=== PATIENT | male | born 1990 | race Caucasian/White ===

== ENCOUNTER 2023-03-05 08:26 | Outpatient (CLI) | payer BC, SELFPAY | END 2023-03-05 08:27 | disposition home or self-care (01) | PROVIDERS: PCP Family Medicine; Visit Provider Family Medicine | DX: Z00.00 Encounter for general adult medical examination without abnormal findings (principal); R53.83 Other fatigue; Z13.6 Encounter for screening for cardiovascular disorders | CPT/HCPCS: 80048; 80061; 84403; 84460 ==

== ENCOUNTER 2024-12-25 18:08 | Emergency (ER) | payer BC, SELFPAY ==
--- OUTSIDE RECORDS SUMMARY | 2024-12-25 16:04 | XMS_ITS | Continuity of Care Document ---
Author Name [facility] Organization [facility] Care Team Providers Care Four H Agent Name Role Phone [facility] Unavailable Unavailable Problems Combined list of problems from Department of Defense and Veterans Affairs facilities. It does not include entries that were removed or entered in error. Problem Status Onset Date Problem Type Date of Resolution Comments Source Alcohol dependence Active Condition [facility] 2021 Entered By: JOSE REYES Comment: Rha [facility] Chronic low back pain Active Condition [facility] Pain in right leg Active Condition [facility] Right hip pain Active Condition [facility] NO PSYCHIATRIC DIAGNOSIS OR CONDITION ON AXIS I Inactive Condition [facility] Rehabilitation Active Condition DoD tobacco use Active Condition DoD THIGH STRAIN Inactive Condition [facility] INJURY OF LOWER EXTREMITY HIP Inactive Condition [facility] visit for: potential organ / tissue donor Inactive Condition DoD Need For Prophylactic Antibiotics Inactive Condition [facility] Orthopedic Aftercare For Healing Fracture Inactive Condition DoD UPPER RESPIRATORY INFECTION Inactive Condition Do[facility] STRESS FRACTURE OF NECK OF FEMUR Active Condition DoD Need For Vaccination Yellow Fever Inactive Condition DoD UNSPECIFIED MUSCLE STRAIN Inactive Condition DoD THIGH STRAIN RIGHT Inactive Condition [facility] joint pain, localized in the hip Active Condition DoD Need For Vaccination Chickenpox (Active) Inactive Condition [facility] Need For Vaccination Poliomyelitis Inactivated Inactive Condition DoD Vaccines Prophylactic Need Against Bacterial Diseases Inactive Condition DoD ILIOTIBIAL BAND FRICTION SYNDROME Active Condition DoD ASTIGMATISM Active Condition DoD REFRACTIVE ERROR - MYOPIA Active Condition DoD visit for: services physical accession Active Condition DoD Need For Vaccination Pneumococcal Inactive Condition DoD Vaccines Prophylactic Need Against DTP Inactive Condition DoD visit for: screening exam pulmonary tuberculosis Inactive Condition DoD Blood Typing Inactive Condition [facility] Intervention And Counseling On Cessation Of Tobacco Use Active Condition DoD visit for: examination of subpopulation Active Condition DoD Need For Vaccination Hepatitis A And Hepatitis B Inactive Condition [facility] Patient Education - Injury Prevention Active Condition DoD visit for: ears / hearing exam Active Condition DoD Allergies, Adverse Reactions, Alerts Combined list of allergies from Department of Defense and Veterans Affairs facilities. It does not include entries that were removed or entered in error. Substance Category Reaction Severity Reaction type Status Date Reported Comments Source No Known Allergies Drug allergy (disorder) active 12/10/2011 [facility] Encounters Combined list of: 1) Encounters from Department of Veterans Affairs facilities going backup to the last 18 months, not all VA inpatient encounters are included; 2) Encounters from the Department of Defense facilities going backup to 280 months. Location Location Details Encounter Type Encounter Number Reason For Visit Attending Provider ADM Date DC Date Status Disposition Source [facility] D HC Program) OUTPATIENT [id number] Notes Entered by: MARION PYLE 09 Dec 2011 0820 ------- ------- ------- ------- -- STEPHANIE ROTH AUDIOGR AM MARION PYLE 12/08 Released w/o Limitations [facility] HC Program ) [facility] D Recruit Processin g) OUTPATIENT [id number] Notes Entered by: Jacob TALAVERA 09 Dec 2011 1354 ------- ------- ------- ------- -- DURAN PADILLA 12/08 Released w/o Limitations [facility] Recruit Process ing) [facility] D Optometry ) OUTPATIENT [id number] Notes Entered by: Vickie BIRMINGHAM 14 Dec 2011 0855 ------- ------- ------- ------- -- RECRUIT EXAM FOZIA GABRIEL 12/13 Released w/o Limitations [facility] Optomet ry) [facility] D Sports Medicine) OUTPATIENT [id number] Notes Entered by: KHADAR PAGE 21 Dec 2011 0726 ------- ------- ------- ------- -- LEFT KNEE HUNTER CAMACHO 12/20 Released w/o Limitations [facility] Sports Medicin e) [facility] D Recruit Processin g) OUTPATIENT [id number] T22 V LUPIS SQUIRES 01/10 Released w/o Limitations [facility] Recruit Process ing) [place]([facility]) OUTPATIENT [id number] right hip pain x 3 weeks HARRY SY 01/14 Released with Work/Duty Limitations [facility] [place]([facility] Primary Care) [place]31 [facility] Primary Care) OUTPATIENT [id number] fup hip pain MEHNAZ ANDREWS 01/17 Released with Work/Duty Lim[place] [facility] [place] [place] [place] Primary Care) OUTPATIENT [id number] fup hip pain/im proving MEHNAZ ANDREWS A 01/19 Released w/o Limitations [place]31 [facility] Primary Care) [facility] D Sports Medicine) OUTPATIENT [id number] Notes Entered by: KHADAR PAGE 05 Feb 2012 0639 ------- ------- ------- ------- -- RIGHT HIP/RIG HT KNEE BREANA FERMIN 02/04 Released with Work/Duty Limitations [facility] Sports Medicin e) [facility] D Sports Medicine) OUTPATIENT [id number] Notes Entered by: KHADAR PAGE 08 Feb 2012 0641 ------- ------- ------- ------- -- RIGHT HIP/KNE E BREANA FERMIN 02/07 Released w/o Limitations [facility] Sports Medicin e) [facility] D Recruit Processin g) OUTPATIENT [id number] T48 VACCINE LUPIS TELLO 02/08 Released w/o Limitations [facility] Recruit Process ing) [facility] D Sports Medicine) OUTPATIENT [id number] Notes Entered by: PABLO FREGOSO 12 Feb 2012 0653 ------- ------- ------- ------- -- leg BREANA FERMIN 02/11 Released with Work/Duty Limitations [facility] Sports Medicin e) [facility] D Sports Medicine) OUTPATIENT [id number] F/U RT HIP FLEXOR STRAIN BREANA FERMIN Rajesh 02/14 Released with Work/Duty Limitations [facility] Sports Medicin e) [facility] D Sports Medicine) OUTPATIENT [id number] atc/bam BREANA FERMIN Rajesh 02/15 Released with Work/Duty Limitations [facility] Sports Medicin e) [facility] D Sports Medicine) OUTPATIENT [id number] F/U S/P BONE SCAN/MR I RIGHT HIP TY COTTON S 02/17 Released with Work/Duty Limitations [facility] Sports Medicin e) [facility] Sports Medicine) OUTPATIENT [id number] FEMUR FX VON ANN 02/18 Released with Work/Duty Limitations [facility] Sports Medicin e) [facility] Sports Medicine) OUTPATIENT [id number] FEMUR FX VON ANN 02/21 Released with Work/Duty Limitations [facility] Sports Medicin e) [facility] Sports Medicine) OUTPATIENT [id number] Notes Entered by: SLOAN BEAL P 23 Feb 2012 1152 ------- ------- ------- ------- -- ATC pool therapy VON ANN 02/22 Released with Work/Duty Limitations [facility] Sports Medicin e) [facility] D Sports Medicine) OUTPATIENT [id number] ATC/BAM VON ANN 02/23 Released with Work/Duty Limitations [facility] Sports Medicin e) [facility] D Sports Medicine) OUTPATIENT [id number] SFX FEMUR VON ANN 02/24 Released with Work/Duty Limitations [facility] Sports Medicin e) [facility] D Sports Medicine) OUTPATIENT [id number] atc/VON French 02/25 Released with Work/Duty Limitations [facility] Sports Medicin e) [facility] D Sports Medicine) OUTPATIENT [id number] ATC/MRP 1 VON ANN 03/02 Released with Work/Duty Limitations [facility]( [facility] Sports Medicin e) [facility] D Sports Medicine) OUTPATIENT [id number] ATC/MRP 1 TY COTTON 03/04 Released with Work/Duty Limitations [facility] Sports Medicin e) [facility] D Sports Medicine) OUTPATIENT [id number] ATC/MRP 1 VON ANN 03/07 Released with Work/Duty Limitations [facility] Sports Medicin e) [facility] D Sports Medicine) OUTPATIENT [id number] Notes Entered by: MELE KATHLEEN 08 Mar 2012 1110 ------- ------- ------- ------- -- F/U RT FEM NECK SFX VON ANN 03/08 Released with Work/Duty Limitations [facility] Sports Medicin e) [facility] D Sports Medicine) OUTPATIENT [id number] F/U RT FEM NECK SFX BREANA FERMIN 03/09 Released with Work/Duty Limitations [facility] Sports Medicin e) [facility] D Sports Medicine) OUTPATIENT [id number] ATC/MRP 1 VON ANN 03/11 Released with Work/Duty Limitations [facility] Sports Medicin e) [facility] D Recruit Sick Call) OUTPATIENT [id number] Notes Entered by: Suri WHATLEY 12 Mar 2012 0718 ------- ------- ------- ------- -- SORE THROAT X 3 DAYS SHANTI LESTER 03/12 Released with Work/Duty Limitations [facility] Recruit Sick Call) [facility] D Sports Medicine) OUTPATIENT [id number] ATC/MRP 1 VON ANN 03/14 Released with Work/Duty Limitations [facility] Sports Medicin e) [facility] D Sports Medicine) OUTPATIENT [id number] atc VON ANN 03/16 Released with Work/Duty Limitations [facility] Sports Medicin e) [facility] D Sports Medicine) OUTPATIENT [id number] atc VON ANN 03/18 Released with Work/Duty Limitations [facility]( [facility] Sports Medicin e) [facility] D Sports Medicine) OUTPATIENT [id number] ATC/MRP 1 VON ANN 03/21 Released with Work/Duty Limitations [facility]( [facility] Sports Medicin e) [facility] D Sports Medicine) OUTPATIENT [id number] F/U RT FEM NECK SFX VON ANN 03/22 Released with Work/Duty Limitations [facility]( [facility] Sports Medicin e) [facility] D Sports Medicine) OUTPATIENT [id number] ATC/MRP 1 VON ANN 03/23 Released with Work/Duty Limitations [facility]( [facility] Sports Medicin e) [facility] D Sports Medicine) OUTPATIENT [id number] ATC VON ANN 03/29 Released with Work/Duty Limitations [facility]( [facility] Sports Medicin e) [facility] D Sports Medicine) OUTPATIENT [id number] f/u from mri/bam VON ANN 03/30 Released with Work/Duty Limitations [facility]( [facility] Sports Medicin e) [facility] D Sports Medicine) OUTPATIENT [id number] ATC/MRP 1 VON ANN 03/31 Released with Work/Duty Limitations [facility]( [facility] Sports Medicin e) [facility] D Sports Medicine) OUTPATIENT [id number] Notes Entered by: SLOAN BEAL P 05 Apr 2012 1225 ------- ------- ------- ------- -- ATC pool therapy VON ANN 04/05 Released with Work/Duty Limitations [facility]( [facility] Sports Medicin e) [facility] D Sports Medicine) OUTPATIENT [id number] ATC BREANA FERMIN 04/06 Released with Work/Duty Limitations [facility]( [facility] Sports Medicin e) [facility] D Sports Medicine) OUTPATIENT [id number] BREANA ROSSI 04/07 Released with Work/Duty Limitations [facility]( [facility] Sports Medicin e) [facility] D Sports Medicine) OUTPATIENT [id number] Notes Entered by: SLOAN BEAL 07 Apr 2012 1332 ------- ------- ------- ------- -- ATC pool therapy TY COTTON 04/07 Released with Work/Duty Limitations [facility]( [facility] Sports Medicin e) [facility] D Sports Medicine) OUTPATIENT [id number] ATC BREANA FERMIN 04/08 Released with Work/Duty Limitations [facility]( [facility] Sports Medicin e) [facility] D Sports Medicine) OUTPATIENT [id number] atc BREANA FERMIN 04/11 Released with Work/Duty Limitations [facility]( [facility] Sports Medicin e) [facility] D Sports Medicine) OUTPATIENT [id number] F/U RT FEM NECK SFX BREANA FERMIN 04/13 Released with Work/Duty Limitations [facility]( [facility] Sports Medicin e) [facility] D Sports Medicine) OUTPATIENT [id number] atc/bam BREANA FERMIN 04/15 Released with Work/Duty Limitations [facility]( [facility] Sports Medicin e) [facility] D Sports Medicine) OUTPATIENT [id number] ATC/MRP 1 BREANA FERMIN 04/18 Released with Work/Duty Limitations [facility] Sports Medicin e) [facility] D Sports Medicine) OUTPATIENT [id number] ATC/MRP 1 VON ANN 04/20 Released with Work/Duty Limitations [facility]( [facility] Sports Medicin e) [facility] D Sports Medicine) OUTPATIENT [id number] atc VON ANN 04/22 Released with Work/Duty Limitations [facility]( [facility] Sports Medicin e) [facility] D Sports Medicine) OUTPATIENT [id number] ATC/MRP 1 VON ANN 04/25 Released with Work/Duty Limitations [facility]( [facility] Sports Medicin e) [facility] D Sports Medicine) OUTPATIENT [id number] F/U RT FEM NECK SFX VON ANN 04/27 Released with Work/Duty Limitations [facility]( [facility] Sports Medicin e) [facility] Sports Medicine) OUTPATIENT [id number] ATC/MRP 1 VON ANN 04/29 Released with Work/Duty Limitations [facility] Sports Medicin e) [facility] Sports Medicine) OUTPATIENT [id number] ATC/BMA VON ANN 05/02 Released with Work/Duty Limitations [facility]( [facility] Sports Medicin e) [facility] Sports Medicine) OUTPATIENT [id number] atc VON ANN 05/04 Released with Work/Duty Limitations [facility] Sports Medicin e) [facility] Sports Medicine) OUTPATIENT [id number] Notes Entered by: SLOAN BEAL 05 May 2012 1353 ------- ------- ------- ------- -- TRX therapy VON ANN 05/05 Released with Work/Duty Limitations [facility] Sports Medicin e) [facility] Sports Medicine) OUTPATIENT [id number] atc VON ANN 05/06 Released with Work/Duty Limitations [facility] Sports Medicin e) [facility] Sports Medicine) OUTPATIENT [id number] atc VON ANN 05/09 Released with Work/Duty Limitations [facility]( [facility] Sports Medicin e) [facility] Sports Medicine) OUTPATIENT [id number] F/U RT FEM NECK SFX VON ANN 05/11 Released with Work/Duty Limitations [facility] Sports Medicin e) [facility] Sports Medicine) OUTPATIENT [id number] ATC VON ANN 05/13 Released with Work/Duty Limitations [facility] Sports Medicin e) [facility] Sports Medicine) OUTPATIENT [id number] atc VON ANN 05/18 Released with Work/Duty Limitations [facility](M CRD Sports Medicin e) [facility] D Sports Medicine) OUTPATIENT [id number] F/U RT FEM NECK SFX VON ANN 05/25 Released w/o Limitations [facility](M [facility] Sports Medicin e) [facility] [place] OUTPATIENT [id number] post crucibl YAHIR Vaca 06/16 Released w/o Limitations [facility] [place] [facility] [place]) OUTPATIENT [id number] ОЛЕГ Schaffer 08/12 Released w/o Limitations [facility] [place] [facility] [facility] [place] OUTPATIENT [id number] r femur px NATE REDDY 08/12 Immediate Referral [facility] [place] [facility] [place] [facility] Smart Sports Medicine[place] OUTPATIENT [id number] R hip VICKEY Michelle 08/15 Released with Work/Duty Limitations [facility] [place] [facility] [place] [facility] [place] [facility] [place] OUTPATIENT [id number] phase 1 eval per ANDREA Cesar. R hip OFELIA ARREOLA 08/15 Released with Work/Duty Limitations [facility] [place] [facility] [facility] [place] OUTPATIENT [id number] Notes Entered by: ANURAG SHUKLA 22 Aug 2012 0915 ------- ------- ------- ------- -- R hip CECELIA KOEHLER 08/22 Released with Work/Duty Limitations [facility] [place] [facility] [facility] [place] OUTPATIENT [id number] Notes Entered by: ANURAG SHUKLA N 23 Aug 2012 0825 ------- ------- ------- ------- -- PHASE 1 TX CECELIA KOEHLER 08/23 Released with Work/Duty Limitations [facility] [facility] [place] OUTPATIENT [id number] R hip f/u VICKEY OTOOLE 08/30 Released with Work/Duty Limitations [facility] [place] [facility] [place] OUTPATIENT [id number] phase 2 eval per ANDREA Cesar/ R hip. MADHAVI WILLSON S 08/30 Released with Work/Duty Limitations [facility] [facility] [place]) OUTPATIENT [id number] sep pe under 2yrs ROMAN ALTAMIRANO 09/12 Released w/o Limitations [facility] [place] [facility] [place] OUTPATIENT [id number] f/u for RTFD. VICKEY OTOOLE 09/26 Released w/o Limitations [facility] [place] Procedures Combined list of: 1) Procedures from Department of Veterans Affairs facilities going back up to thelast 18 months, not all VA non-surgical procedures are included; 2) All procedures from the Department of Defense facilities. Procedure Procedure Type Code Date Perfomer Comments Sour e THERAPEUTIC ACTIVITIES, DIRECT (ONE-ON-ONE) PATIENT CONTACT (USE OF DYNAMIC ACTIVITIES TO IMPROVE FUNCTIONAL PERFORMANCE), EACH 15 MINUTES 012 DoD MANUAL THERAPY TECHNIQUES (EG, MOBILIZATION/ MANIPULATION, MANUAL LYMPHATIC DRAINAGE, MANUAL TRACTION), 1 OR MORE REGIONS, EACH 15 MINUTES 012 DoD MANUAL THERAPY TECHNIQUES (EG, MOBILIZATION/ MANIPULATION, MANUAL LYMPHATIC DRAINAGE, MANUAL TRACTION), 1 OR MORE REGIONS, EACH 15 MINUTES 012 DoD MANUAL THERAPY TECHNIQUES (EG, MOBILIZATION/ MANIPULATION, MANUAL LYMPHATIC DRAINAGE, MANUAL TRACTION), 1 OR MORE REGIONS, EACH 15 MINUTES 012 [facility] THERAPEUTIC PROCEDURE, 1 OR MORE AREAS, EACH 15 MINUTES; THERAPEUTIC EXERCISES TO DEVELOP STRENGTH AND ENDURANCE, RANGE OF MOTION AND FLEXIBILITY [facility] MANUAL THERAPY TECHNIQUES (EG, MOBILIZATION/ MANIPULATION, MANUAL LYMPHATIC DRAINAGE, MANUAL TRACTION), 1 OR MORE REGIONS, EACH 15 MINUTES [facility] MANUAL THERAPY TECHNIQUES (EG, MOBILIZATION/ MANIPULATION, MANUAL LYMPHATIC DRAINAGE, MANUAL TRACTION), 1 OR MORE REGIONS, EACH 15 MINUTES [facility] MANUAL THERAPY TECHNIQUES (EG, MOBILIZATION/ MANIPULATION, MANUAL LYMPHATIC DRAINAGE, MANUAL TRACTION), 1 OR MORE REGIONS, EACH 15 MINUTES [facility] MANUAL THERAPY TECHNIQUES (EG, MOBILIZATION/ MANIPULATION, MANUAL LYMPHATIC DRAINAGE, MANUAL TRACTION), 1 OR MORE REGIONS, EACH 15 MINUTES [facility] MANUAL THERAPY TECHNIQUES (EG, MOBILIZATION/ MANIPULATION, MANUAL LYMPHATIC DRAINAGE, MANUAL TRACTION), 1 OR MORE REGIONS, EACH 15 MINUTES [facility] MANUAL THERAPY TECHNIQUES (EG, MOBILIZATION/ MANIPULATION, MANUAL LYMPHATIC DRAINAGE, MANUAL TRACTION), 1 OR MORE REGIONS, EACH 15 MINUTES [facility] MANUAL THERAPY TECHNIQUES (EG, MOBILIZATION/ MANIPULATION, MANUAL LYMPHATIC DRAINAGE, MANUAL TRACTION), 1 OR MORE REGIONS, EACH 15 MINUTES [facility] MANUAL THERAPY TECHNIQUES (EG, MOBILIZATION/ MANIPULATION, MANUAL LYMPHATIC DRAINAGE, MANUAL TRACTION), 1 OR MORE REGIONS, EACH 15 MINUTES [facility] THERAPEUTIC PROCEDURE, 1 OR MORE AREAS, EACH 15 MINUTES; THERAPEUTIC EXERCISES TO DEVELOP STRENGTH AND ENDURANCE, RANGE OF MOTION AND FLEXIBILITY [facility] MANUAL THERAPY TECHNIQUES (EG, MOBILIZATION/ MANIPULATION, MANUAL LYMPHATIC DRAINAGE, MANUAL TRACTION), 1 OR MORE REGIONS, EACH 15 MINUTES [facility] THERAPEUTIC PROCEDURE, 1 OR MORE AREAS, EACH 15 MINUTES; AQUATIC THERAPY WITH THERAPEUTIC EXERCISES [facility] MANUAL THERAPY TECHNIQUES (EG, MOBILIZATION/ MANIPULATION, MANUAL LYMPHATIC DRAINAGE, MANUAL TRACTION), 1 OR MORE REGIONS, EACH 15 MINUTES [facility] THERAPEUTIC ACTIVITIES, DIRECT (ONE-ON-ONE) PATIENT CONTACT (USE OF DYNAMIC ACTIVITIES TO IMPROVE FUNCTIONAL PERFORMANCE), EACH 15 MINUTES [facility] THERAPEUTIC PROCEDURE, 1 OR MORE AREAS, EACH 15 MINUTES; AQUATIC THERAPY WITH THERAPEUTIC EXERCISES [facility] MANUAL THERAPY TECHNIQUES (EG, MOBILIZATION/ MANIPULATION, MANUAL LYMPHATIC DRAINAGE, MANUAL TRACTION), 1 OR MORE REGIONS, EACH 15 MINUTES [facility] MANUAL THERAPY TECHNIQUES (EG, MOBILIZATION/ MANIPULATION, MANUAL LYMPHATIC DRAINAGE, MANUAL TRACTION), 1 OR MORE REGIONS, EACH 15 MINUTES [facility] MANUAL THERAPY TECHNIQUES (EG, MOBILIZATION/ MANIPULATION, MANUAL LYMPHATIC DRAINAGE, MANUAL TRACTION), 1 OR MORE REGIONS, EACH 15 MINUTES [facility] MANUAL THERAPY TECHNIQUES (EG, MOBILIZATION/ MANIPULATION, MANUAL LYMPHATIC DRAINAGE, MANUAL TRACTION), 1 OR MORE REGIONS, EACH 15 MINUTES [facility] MANUAL THERAPY TECHNIQUES (EG, MOBILIZATION/ MANIPULATION, MANUAL LYMPHATIC DRAINAGE, MANUAL TRACTION), 1 OR MORE REGIONS, EACH 15 MINUTES [facility] MANUAL THERAPY TECHNIQUES (EG, MOBILIZATION/ MANIPULATION, MANUAL LYMPHATIC DRAINAGE, MANUAL TRACTION), 1 OR MORE REGIONS, EACH 15 MINUTES [facility] MANUAL THERAPY TECHNIQUES (EG, MOBILIZATION/ MANIPULATION, MANUAL LYMPHATIC DRAINAGE, MANUAL TRACTION), 1 OR MORE REGIONS, EACH 15 MINUTES [facility] MANUAL THERAPY TECHNIQUES (EG, MOBILIZATION/ MANIPULATION, MANUAL LYMPHATIC DRAINAGE, MANUAL TRACTION), 1 OR MORE REGIONS, EACH 15 MINUTES [facility] THERAPEUTIC PROCEDURE, 1 OR MORE AREAS, EACH 15 MINUTES; THERAPEUTIC EXERCISES TO DEVELOP STRENGTH AND ENDURANCE, RANGE OF MOTION AND FLEXIBILITY [facility] THERAPEUTIC PROCEDURE, 1 OR MORE AREAS, EACH 15 MINUTES; THERAPEUTIC EXERCISES TO DEVELOP STRENGTH AND ENDURANCE, RANGE OF MOTION AND FLEXIBILITY [facility] MANUAL THERAPY TECHNIQUES (EG, MOBILIZATION/ MANIPULATION, MANUAL LYMPHATIC DRAINAGE, MANUAL TRACTION), 1 OR MORE REGIONS, EACH 15 MINUTES [facility] MANUAL THERAPY TECHNIQUES (EG, MOBILIZATION/ MANIPULATION, MANUAL LYMPHATIC DRAINAGE, MANUAL TRACTION), 1 OR MORE REGIONS, EACH 15 MINUTES [facility] THERAPEUTIC PROCEDURE, 1 OR MORE AREAS, EACH 15 MINUTES; THERAPEUTIC EXERCISES TO DEVELOP STRENGTH AND ENDURANCE, RANGE OF MOTION AND FLEXIBILITY [facility] MANUAL THERAPY TECHNIQUES (EG, MOBILIZATION/ MANIPULATION, MANUAL LYMPHATIC DRAINAGE, MANUAL TRACTION), 1 OR MORE REGIONS, EACH 15 MINUTES [facility] THERAPEUTIC PROCEDURE, 1 OR MORE AREAS, EACH 15 MINUTES; AQUATIC THERAPY WITH THERAPEUTIC EXERCISES [facility] THERAPEUTIC PROCEDURE, 1 OR MORE AREAS, EACH 15 MINUTES; THERAPEUTIC EXERCISES TO DEVELOP STRENGTH AND ENDURANCE, RANGE OF MOTION AND FLEXIBILITY [facility] ATHLETIC TRAINING EVALUATION [facility] APPLICATION OF A MODALITY TO 1 OR MORE AREAS; HOT OR COLD PACKS [facility] APPLICATION OF A MODALITY TO 1 OR MORE AREAS; HOT OR COLD PACKS DoD APPLICATION OF A MODALITY TO 1 OR MORE AREAS; HOT OR COLD PACKS DoD APPLICATION OF A MODALITY TO 1 OR MORE AREAS; HOT OR COLD PACKS DoD IMMUNIZATION ADMINISTRATION (INCLUDES PERCUTANEOUS, INTRADERMAL, SUBCUTANEOUS, OR INTRAMUSCULAR INJECTIONS); EACH ADDITIONAL VACCINE (SINGLE OR COMBINATION VACCINE/TOXOID) DoD APPLICATION OF A MODALITY TO 1 OR MORE AREAS; HOT OR COLD PACKS DoD IMMUNIZATION ADMINISTRATION (INCLUDES PERCUTANEOUS, INTRADERMAL, SUBCUTANEOUS, OR INTRAMUSCULAR INJECTIONS); EACH ADDITIONAL VACCINE (SINGLE OR COMBINATION VACCINE/TOXOID) [facility] FITTING OF SPECTACLES, EXCEPT FOR APHAKIA; MONOFOCAL [facility] COLLECTION OF VENOUS BLOOD BY VENIPUNCTURE [facility] PHYS/OTH QUALIFIED HEALTH OIL PROCESS STILLMAN QUALIFIED,EDUCATION, TRAIN,LICENSURE/REGU LATION (WHEN APPLICABLE) EDUC SER RENDERED TO PATS IN A GRP SETTING (EG,,OBESITY ,OR DIABETIC INSTRUCT) DoD Physical Therapy: ___ Se ion Segments, 15 Minutes Each Physical Therapy: ___ Session Segments, 15 Minutes Each [id number] YANDEL BHAKTA J X 25 MIN THEREX TO RT HIP DoD Modalities Cryotherapy Cold Packs Modalities Cryotherapy Cold Packs 52602 012 CARSON BHAKTAMER J X 15 MIN TO RT HIP DoD Physical Therapy: ___ Se ion Segments, 15 Minutes Each Physical Therapy: ___ Session Segments, 15 Minutes Each 13205 012 FILAMOR YANDEL J X 25 MIN THEREX TO RT HIP DoD Modalities Cryotherapy Cold Packs Modalities Cryotherapy Cold Packs 01081 012 YONY YANDEL J X 15 MIN TO RT HIP DoD Physical Therapy: ___ Se ion Segments, 15 Minutes Each Physical Therapy: ___ Session Segments, 15 Minutes Each 85509 012 FILAMOR YANDEL J X 30 MIN THEREX TO RT HIP DoD Modalities Cryotherapy Cold Packs Modalities Cryotherapy Cold Packs 69272 012 KEILA IBARRA [facility] Exercises A isted Exercises For [place] [address] KEILA IBARRA [facility] Vaccines Viral Yellow Fever Vaccines Viral Yellow Fever 26538 [facility] Vaccines Viral Varicella (Active) Vaccines Viral Varicella (Active) 55638 [facility] Supervised Injection Intramuscular Antibiotic Supervised Injection Intramuscular Antibiotic 25259 [facility] Injection, penicillin g benzathine, 100,000 units [facility] Immunization Administration One Vaccine Immunization Administration One Vaccine 81692 [facility] Immunization Administration Each Additional Vaccine [facility] Physical Therapy: ___ Se ion Segments, 15 Minutes Each Physical Therapy: ___ Session Segments, 15 Minutes Each 50595 YANDLE BHAKTA X 10 MIN THEREX TO RT KNEE DoD Modalities Cryotherapy Cold Packs Modalities Cryotherapy Cold Packs 77783 012 AYNDEL BHAKTA X 15 MIN TO RT KNEE DoD Vaccines Viral Polio, Inactivated (Salk) Vaccines Viral Polio, Inactivated (Salk) 94959 [facility] Injection, penicillin g benzathine, 100,000 units [facility] Immunization Administration One Vaccine Immunization Administration One Vaccine 24558 [facility] Immunization Administration Each Additional Vaccine [facility] Vaccines Viral Varicella (Active) Vaccines Viral Varicella (Active) 60331 [facility] Hepatitis A And Hepatitis B (Intramuscular Use) Adult Dosage Hepatitis A And Hepatitis B (Intramuscular Use) [facility] Supervised Injection Intramuscular Supervised Injection Intramuscular 03569 [facility] Spectacles Services Fitting Monofocals (Not For Aphakia) [facility] Fitting Monofocals (Not For Aphakia) 26369 [facility] [place] [facility] Determination Of Refractive State Determination Of Refractive State 73058 [facility] [place] [facility] Ophthalmological New Patient Start Intermediate Level Care Ophthalmological New Patient Start Intermediate Level Care 86231 [place] [place] [facility] Collection Of Capillary Blood Specimen Collection Of Capillary Blood Specimen 61564 [place] [facility] Meningococcal Polysaccharide Vaccine (Active) Meningococcal Polysaccharide Vaccine (Active) 52629 [place] [facility] Immunization Administration Each Additional Vaccine [place] [facility] Hepatitis A And Hepatitis B (Intramuscular Use) Adult Dosage Hepatitis A And Hepatitis B (Intramuscular Use) Adult Dosage 60750 [place] [facility] Pneumococcal Polysaccharide Vaccine Adult Dos For Intramusc Pneumococcal Polysaccharide Vaccine Adult Dos For Intramusc 28024 [place] [facility] Immunization Administration One Vaccine Immunization Administration One Vaccine 76594 [place] [facility] Tdap Vaccine Seven Years Of Age And Above Tdap Vaccine Seven Years Of Age And Above 87091 [place] [facility] Skin Test Anergy Tuberculin Intradermal Skin Test Anergy Tuberculin Intradermal 58164 [place] [facility] Venipuncture Venipuncture 15834 [place] [facility] Threshold Audiogram (Pure Tone) Threshold Audiogram (Pure Tone) 95367 MAR[facility] PYLE [facility] -Supervised Group Educational Services MARION PYLE [facility] Psychiatric Evaluation Review of Records and Reports Psychiatric Evaluation Review of Records and Reports 45801 DIANE DOZIER [facility] Psychiatric Therapy Individual Approximately 45-50 Minutes DIANE DOZIER [facility] Athletic Training Re-evaluation Athletic Training Re-evaluation 50048 MADHAVI WILLSON 20 MIN RE-EVAL FOR PHASE 2 TX PLAN. [facility] Physical Therapy: ___ Se ion Segments, 15 Minutes Each Physical Therapy: ___ Session Segments, 15 Minutes Each 25275 013 MADHAVI WILLSON 20 MIN DEMO AND SHORT TRIAL OF TX PLAN BY PATIENT. DoD Modalities Cryotherapy Cold Packs Modalities Cryotherapy Cold Packs 86904 013 ZAKIA, CECELIA ESCOBAR Ice pack x 15min DoD Physical Therapy: ___ Se ion Segments, 15 Minutes Each Physical Therapy: ___ Session Segments, 15 Minutes Each 70782 013 ZAKIA, CECELIA ESCOBAR TherEx for R thigh x 40min DoD Modalities Cryotherapy Cold Packs Modalities Cryotherapy Cold Packs 70975 013 ZAKIA, CECELIA ESCOBAR Ice pack x 15in DoD Physical Therapy: ___ Se ion Segments, 15 Minutes Each Physical Therapy: ___ Session Segments, 15 Minutes Each 01091 013 ZAKIA, CECELIA ESCOBAR TherEx for R thigh x 40min DoD Modalities Heat Hot Packs Modalities Heat Hot Packs 97940 013 OFELIA ARREOLA A X 10 MIN TO R HIP. [facility] PT A e ment Kinetic Training PT Assessment Kinetic Training 65904 OFELIA ARREOLA A X 8 MIN COACHING PT ON ACTIVITIES OF DAILY LIVING TO PREVENT PAIN INCREASES. [facility] Phys Therapy Education Self Care Training - Per 15 Minutes Phys Therapy Education Self Care Training - Per 15 Minutes 45346 013 OFELIA ARREOLA A X 10 MIN HEP. PT UNDERSTANDS THE NEED FOR ROM EXERCISES. PT DEMONSTRATES KNOWLEDGE OF HIS HEP. [facility] Physical Therapy: ___ Se ion Segments, 15 Minutes Each Physical Therapy: ___ Session Segments, 15 Minutes Each 63516 013 OFELIA ARREOLA A THEREX X 25 MIN TO R HIP. [facility] Athletic Training Evaluation Athletic Training Evaluation 13803 OFELIA ARREOLA X 8 MIN EVALUATION OF R HIP TO CREATE PLAN OF CARE. [facility] Screening to determine the appropriatene of consideration of an individual for participation in a specified program, project or treatment protocol, per encounter ОЛЕГ TIM Dr. Supervised Injection Intramuscular Antibiotic Supervised Injection Intramuscular Antibiotic 98021 GLENROY, ОЛЕГ E DoD Exercises A isted Exercises For ROM Exercises Assisted [place] 64693 012 BARSS, ELENA M DoD Mobilization Soft Ti ue Mobilization Soft Tissue 04317 012 BARSS, ELENA M DoD PT A e ment Kinetic Training PT Assessment Kinetic Training 75930 012 BARSS, ELENA M DoD Mobilization Soft Ti ue Mobilization Soft Tissue 06387 012 BARSS, ELENA M DoD Exercises A isted Exercises For ROM Exercises [place] 60043 012 BARSS, ELENA M DoD PT A e ment Kinetic Training PT Assessment Kinetic Training 60818 012 BARSS, ELENA M DoD Mobilization Soft Ti ue Mobilization Soft Tissue 51826 012 BARSS, ELENA Lorenzo DoD Exercises A isted Exercises For ROM Exercises Assisted [place] 25646 012 BARSS, ELENA M DoD PT A e ment Kinetic Training PT Assessment Kinetic Training 63029 012 BARSS, ELENA M DoD Mobilization Soft Ti ue Mobilization Soft Tissue 23337 012 BARSS, ELENA M DoD Exercises A isted Exercises For ROM Exercises [place] 30099 012 BARSS, ELENA Lorenzo DoD PT A e ment Kinetic Training PT Assessment Kinetic Training 99000 012 BARSS, ELENA Lorenzo DoD Exercises A isted Exercises For ROM Exercises Ass[place] 54288 012 STEPAN ARTHUR DoD Exercises A isted Exercises For ROM Exercises [place] 37060 012 BARSS, ELENA M DoD Mobilization Soft Ti ue Mobilization Soft Tissue 35670 012 BARSS, ELENA Lorenzo DoD PT A e ment Kinetic Training PT Assessment Kinetic Training 46021 012 BARSS, ELENA Lorenzo DoD Exercises A isted Exercises For ROM Exercises Assisted [place]ises [place] ROM 29518 012 BARSS, ELENA M DoD Mobilization Soft Ti ue Mobilization Soft Tissue 67386 012 BARSS, ELENA Lorenzo DoD PT A e ment Kinetic Training PT Assessment Kinetic Training 84789 012 BARSS, ELENA Lorenzo DoD Mobilization Soft Ti ue Mobilization Soft Tissue 59473 012 FILAMOR, YANDEL J DoD Exercises A isted Exercises For ROM Exercises Assisted Exercises For ROM 27353 012 FILAMOR, YANDEL J DoD PT A e ment Kinetic Training PT Assessment Kinetic Training 93268 012 FILAMOR, YANDEL J DoD Mobilization Soft Ti ue Mobilization Soft Tissue 80961 FILAMOR, YANDEL J DoD Exercises A isted Exercises For ROM Exercises Ass[place] 85374 FILAMKEYSHA, YANDEL J DoD PT A e ment Kinetic Training PT Assessment Kinetic Training 61112 FILAMOR, YANDEL J DoD Mobilization Soft Ti ue Mobilization Soft Tissue 48578 012 BARSSELENA Exercises A isted Exercises For ROM Exercises Assisted [place]ercises [place] ROM 82057 012 BARSS, ELENA Lucero PT A e ment Kinetic Training PT Assessment Kinetic Training 95916 012 BARSSELENA Exercises A isted Exercises For ROM Exercises Assisted [place]ises [place] ROM 26386 012 BARSS, ELENA Lucero Mobilization Soft Ti ue Mobilization Soft Tissue 45913 012 BARSSELENA PT A e ment Kinetic Training PT Assessment Kinetic Training 75549 012 BARSSELENA Mobilization Soft Ti ue Mobilization Soft Tissue 60603 012 BARSSELENA Exercises A isted Exercises For ROM Exercises Assisted Exercises For ROM 01302 012 BARSSELENA PT A e ment Kinetic Training PT Assessment Kinetic Training 04514 012 BARSSELENA Exercises A isted Exercises For ROM Exercises Assisted [place]ercises For ROM 54279 012 BARSS, ELENA Lucero Mobilization Soft Ti ue Mobilization Soft Tissue 45604 012 BARSSELENA PT A e ment Kinetic Training PT Assessment Kinetic Training 49594 012 BARSSELENA Exercises A isted Exercises For ROM [place]erc[place] 46789 012 BARSSELENA PT A e ment Kinetic Training PT Assessment Kinetic Training 00192 012 BARSS, ELENA Lucero Mobilization Soft Ti ue Mobilization Soft Tissue 63292 012 BARSS, ELENA Lucero Exercises A isted Exercises For ROM Exercises Assisted Exercises For ROM 13604 012 BARSS, ELENA M Nic Mobilization Soft Ti ue Mobilization Soft Tissue 77729 012 BARSS, ELENA Lucero PT A e ment Kinetic Training PT Assessment Kinetic Training 87627 012 BARSS, ELENA M Nic Aquatic Exercises Aquatic Exercises 34389 04/07 012 STEPAN ARTHUR Mobilization Soft Ti ue Mobilization Soft Tissue 46666 012 BARSS, ELENA Lucero Exercises A isted Exercises For ROM Exercises Assisted Exercises For ROM 65519 012 BARSS, ELENA Lucero PT A e ment Kinetic Training PT Assessment Kinetic Training 22000 012 BARSS, ELENA Lucero Mobilization Soft Ti ue Mobilization Soft Tissue 56932 012 BARSS, ELENA Lucero Exercises A isted Exercises For ROM Exercises Assisted Exercises For ROM 32272 012 BARSS, ELENA Lucero PT A e ment Kinetic Training PT Assessment Kinetic Training 53661 012 BARSS, ELENA Lucero Aquatic Exercises Aquatic Exercises 54132 04/05 012 STEPAN ARTHUR Mobilization Soft Ti ue Mobilization Soft Tissue 73973 012 BARSS, ELENA Lucero Exercises A isted Exercises For ROM Exercises Ass[place] 22410 012 BARSS, ELENA Lucero PT A e ment Kinetic Training PT Assessment Kinetic Training 69058 012 BARSS, ELENA Lucero Mobilization Soft Ti ue Mobilization Soft Tissue 46829 012 BARSS, ELENA Lucero Exercises A isted Exercises For ROM Exercises Assisted Exercises For ROM 61352 012 BARSS, ELENA M Nic Mobilization Soft Ti ue Mobilization Soft Tissue 17319 012 BARSS, ELENA Lorenzo DoD Exercises A isted Exercises For ROM Exercises Assisted Exercises For ROM 02841 012 BARSS, ELENA M DoD Exercises A isted Exercises For ROM Exercises Assisted [place]ises [place] ROM 44770 012 BARSS, ELENA M Nic Mobilization Soft Ti ue Mobilization Soft Tissue 33629 012 BARSS, ELENA M DoD Mobilization Soft Ti ue Mobilization Soft Tissue 21340 012 BARSS, ELENA M DoD Exercises A isted Exercises For ROM Exercises Assisted [place]ises [place] ROM 45333 012 BARSS, ELENA M DoD Exercises A isted Exercises For ROM Exercises Assisted Exercises For ROM 69543 012 BARSS, ELEAN M DoD Mobilization Soft Ti ue Mobilization Soft Tissue 89945 012 BARSS, ELENA M DoD Mobilization Soft Ti ue Mobilization Soft Tissue 78150 012 BARSS, ELENA M DoD Exercises A isted Exercises For ROM Exercises Assisted Exercises For ROM 94489 012 BARSS, ELENA M DoD Exercises A isted Exercises For ROM Exercises Assisted Exercises For ROM 00197 012 BARSS, ELENA M DoD Mobilization Soft Ti ue Mobilization Soft Tissue 18773 BARSS, ELENA M DoD Mobilization Soft Ti ue Mobilization Soft Tissue 54182 012 BARSS, ELENA M DoD Exercises A isted Exercises For ROM Exercises Assisted [place]ises [place] ROM 20776 012 BARSS, ELENA M DoD Mobilization Soft Ti ue Mobilization Soft Tissue 52257 012 BARSS, ELENA M DoD Exercises A isted Exercises For ROM Exercises Assisted [place]ises [place] ROM 52403 012 BARSS, ELENA M DoD Mobilization Soft Ti ue Mobilization Soft Tissue 18790 BARSS, ELENA M DoD Exercises A isted Exercises For ROM Exercises [place] 32639 012 BARSS, ELENA M DoD Exercises A isted Exercises For ROM Exercises Assisted Exercises For ROM 62854 012 BARSS, ELENA M DoD Mobilization Soft Ti ue Mobilization Soft Tissue 98981 BARSS, ELENA M DoD Mobilization Soft Ti ue Mobilization Soft Tissue 24983 SHANTI CHAVARRIA Exercises A isted Exercises For [place] 22202 SHANTI CHAVARRIA Exercises A isted Exercises For ROM Exercises Assisted [place]ises [place] ROM 69662 012 BARSS, ELENA M DoD Mobilization Soft Ti ue Mobilization Soft Tissue 96134 012 BARSS, ELENA Maura DoD Aquatic Exercises Aquatic Exercises 36067 02/22 012 STEPAN ARTHUR DoD Mobilization Soft Ti ue Mobilization Soft Tissue 85180 ELENA WALTERS DoD Exercises A isted Exercises For [place] Ex[place] 98295 012 ELENA WALTERS [facility] Athletic Training Evaluation Athletic Training Evaluation 14560 012 ELENA WALTERS [facility] Modalities Cryotherapy Cold Packs Modalities Cryotherapy Cold Packs 26961 012 YANDEL BHAKTA X 15 MIN TO RT HIP DoD Social History Combined list of available smoking, tobacco, and 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 Social History Type Response Date Comment Sourc e Tobacco smoking status NHIS VA-TOBACCO USER EVERY DAY 08/19/2022 [facility] History of tobacco use VA-TOBACCO USE WI 30 MIN OF WAKEUP 08/19/2022 [facility] This section is an empty social history section. DoD
--- OUTSIDE RECORDS SUMMARY | 2024-12-25 16:04 | XMS_ITS | Continuity of Care Document ---
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 It does not include entries that were removed or entered in error. Problem Status Onset Date Problem Type Date of Resolution Comments Source Alcohol dependence Active Condition [facility] 2021 Entered By: JOSE REYES Comment: Rha [facility] Chronic low back pain Active Condition [facility] Pain in right leg Active Condition [facility] Right hip pain Active Condition [facility] NO PSYCHIATRIC DIAGNOSIS OR CONDITION ON AXIS I Inactive Condition [facility] Rehabilitation Active Condition Do[facility] tobacco use Active Condition [facility] THIGH STRAIN Inactive Condition [facility] INJURY OF LOWER EXTREMITY HIP Inactive Condition [facility] visit for: potential organ / tissue donor Inactive Condition [facility] Need For Prophylactic Antibiotics Inactive Condition [facility] Orthopedic Aftercare For Healing Fracture Inactive Condition [...] Inactive Condition [facility] Blood Typing Inactive Condition [facility] Intervention And Counseling On Cessation Of Tobacco Use Active Condition [facility] visit for: examination of subpopulation Active Condition [facility] Need For Vaccination Hepatitis A And Hepatitis B Inactive Condition [facility] Patient Education - Injury Prevention Active Condition [...] Known Allergies Drug allergy (disorder) active 12/10/2011 [facility] Encounters Combined list of: 1) Encounters from Department of Veterans Affairs facilities going backup to the last 18 months, not all VA inpatient encounters are included; 2) Encounters from the Department of Defense facilities going backup to 280 months. Location Location Details Encounter Type Encounter Number Reason For Visit Attending Provider ADM Date DC Date Status Disposition Source [facility] D HC Program) OUTPATIENT [id number] Notes Entered by: MARION PYLE 09 Dec 2011 0820 ------- ------- ------- ------- -- STEPHANIE ROTH AUDIOGR AM MARION PYLE 12/08 Released w/o Limitations [facility] HC Program ) [facility] D Recruit Processin g) OUTPATIENT [id number] Notes Entered by: Jacob TALAVERA 09 Dec 2011 1354 ------- ------- ------- ------- -- DURAN PADILLA 12/08 Released w/o Limitations [facility] Recruit Process ing) [facility] D Optometry ) OUTPATIENT [id number] Notes Entered by: Vickie BIRMINGHAM 14 Dec 2011 0855 ------- ------- ------- ------- -- RECRUIT EXAM FOZIA GABRIEL 12/13 Released w/o Limitations [facility] Optomet ry) [facility] D Sports Medicine) OUTPATIENT [id number] Notes Entered by: KHADAR PAGE 21 Dec 2011 0726 ------- ------- ------- ------- -- LEFT KNEE HUNTER CAMACHO 12/20 Released w/o Limitations [facility] Sports Medicin e) [facility] D Recruit Processin g) OUTPATIENT [id number] T22 V LUPIS SQUIRES 01/10 Released w/o Limitations [facility] Recruit Process ing) [place]) OUTPATIENT [id number] right hip pain x 3 weeks HARRY SY 01/14 Released with Work/Duty Limitations [facility], [place]([address] [facility] Primary [facility]) [place] [facility] Primary [facility]) OUTPATIENT [id number] fup hip pain MEHNAZ ANDREWS 01/17 Released with Work/Duty Limitations [facility] [place] [facility] [facility] [place] [place] [place] [facility] OUTPATIENT [id number] fup hip pain/im proving MEHNAZ ANDREWS A 01/19 [place]ased [place] Limitations [place] [facility] [facility] [place]) [facility] D Sports Medicine) OUTPATIENT [id number] Notes Entered by: KHADAR PAGE 05 Feb 2012 0639 ------- ------- ------- ------- -- RIGHT HIP/RIG HT KNEE BREANA FERMIN 02/04 Released with Work/Duty Limitations [facility] Sports Medicin e) [facility] D Sports Medicine) OUTPATIENT [id number] Notes Entered by: KHADAR PAGE 08 Feb 2012 0641 ------- ------- ------- ------- -- RIGHT HIP/KNE E BRAENA FERMIN 02/07 Released w/o Limitations [facility] Sports Medicin e) [facility] D Recruit Processin g) OUTPATIENT [id number] T48 VACCINE LUPIS TELLO 02/08 Released w/o Limitations [facility] Recruit Process ing) [facility] D Sports Medicine) OUTPATIENT [id number] Notes Entered by: PABLO FREGOSO 12 Feb 2012 0653 ------- ------- ------- ------- -- leg BREANA FERMIN 02/11 Released with Work/Duty Limitations [facility] Sports Medicin e) [facility] D Sports Medicine) OUTPATIENT [id number] F/U RT HIP FLEXOR STRAIN BREANA FERMIN Rajesh 02/14 Released with Work/Duty Limitations [facility] Sports Medicin e) [facility] D Sports Medicine) OUTPATIENT [id number] atc/bam BREANA FERMIN Rajesh 02/15 Released with Work/Duty Limitations [facility] Sports Medicin e) [facility] D Sports Medicine) OUTPATIENT [id number] F/U S/P BONE SCAN/MR I RIGHT HIP TY COTTON S 02/17 Released with Work/Duty Limitations [facility] Sports Medicin e) [facility] Sports Medicine) OUTPATIENT [id number] FEMUR FX VON ANN 02/18 Released with Work/Duty Limitations [facility] Sports Medicin e) [facility] Sports Medicine) OUTPATIENT [id number] FEMUR FX VON ANN 02/21 Released with Work/Duty Limitations [facility] Sports Medicin e) [facility] Sports Medicine) OUTPATIENT [id number] Notes Entered by: SLOAN BEAL P 23 Feb 2012 1152 ------- ------- ------- ------- -- ATC pool therapy VON ANN 02/22 Released with Work/Duty Limitations [facility] Sports Medicin e) [facility] D Sports Medicine) OUTPATIENT [id number] ATC/BAM VON ANN 02/23 Released with Work/Duty Limitations [facility] Sports Medicin e) [facility] D Sports Medicine) OUTPATIENT [id number] SFX FEMUR VON ANN 02/24 Released with Work/Duty Limitations [facility] Sports Medicin e) [facility] D Sports Medicine) OUTPATIENT [id number] atc/VON French 02/25 Released with Work/Duty Limitations [facility] Sports Medicin e) [facility] D Sports Medicine) OUTPATIENT [id number] ATC/MRP 1 VON ANN 03/02 Released with Work/Duty Limitations [facility]( [facility] Sports Medicin e) [facility] D Sports Medicine) OUTPATIENT [id number] ATC/MRP 1 TY COTTON 03/04 Released with Work/Duty Limitations [facility] Sports Medicin e) [facility] D Sports Medicine) OUTPATIENT [id number] ATC/MRP 1 VON ANN 03/07 Released with Work/Duty Limitations [facility] Sports Medicin e) [facility] D Sports Medicine) OUTPATIENT [id number] Notes Entered by: MELE KATHLEEN 08 Mar 2012 1110 ------- ------- ------- ------- -- F/U RT FEM NECK SFX VON ANN 03/08 Released with Work/Duty Limitations [facility] Sports Medicin e) [facility] D Sports Medicine) OUTPATIENT [id number] F/U RT FEM NECK SFX BREANA FERMIN 03/09 Released with Work/Duty Limitations [facility] Sports Medicin e) [facility] D Sports Medicine) OUTPATIENT [id number] ATC/MRP 1 VON ANN 03/11 Released with Work/Duty Limitations [facility] Sports Medicin e) [facility] D Recruit Sick Call) OUTPATIENT [id number] Notes Entered by: Suri WHATLEY 12 Mar 2012 0718 ------- ------- ------- ------- -- SORE THROAT X 3 DAYS SHANTI LESTER 03/12 Released with Work/Duty Limitations [facility] Recruit Sick Call) [facility] D Sports Medicine) OUTPATIENT [id number] ATC/MRP 1 VON ANN 03/14 Released with Work/Duty Limitations [facility] Sports Medicin e) [facility] D Sports Medicine) OUTPATIENT [id number] atc VON ANN 03/16 Released with Work/Duty Limitations [facility] Sports Medicin e) [facility] D Sports Medicine) OUTPATIENT [id number] atc VON ANN 03/18 Released with Work/Duty Limitations [facility]( [facility] Sports Medicin e) [facility] D Sports Medicine) OUTPATIENT [id number] ATC/MRP 1 VON ANN 03/21 Released with Work/Duty Limitations [facility]( [facility] Sports Medicin e) [facility] D Sports Medicine) OUTPATIENT [id number] F/U RT FEM NECK SFX VON ANN 03/22 Released with Work/Duty Limitations [facility]( [facility] Sports Medicin e) [facility] D Sports Medicine) OUTPATIENT [id number] ATC/MRP 1 VON ANN 03/23 Released with Work/Duty Limitations [facility]( [facility] Sports Medicin e) [facility] D Sports Medicine) OUTPATIENT [id number] ATC VON ANN 03/29 Released with Work/Duty Limitations [facility]( [facility] Sports Medicin e) [facility] D Sports Medicine) OUTPATIENT [id number] f/u from mri/bam VON ANN 03/30 Released with Work/Duty Limitations [facility]( [facility] Sports Medicin e) [facility] D Sports Medicine) OUTPATIENT [id number] ATC/MRP 1 VNO ANN 03/31 Released with Work/Duty Limitations [facility]( [facility] Sports Medicin e) [facility] D Sports Medicine) OUTPATIENT [id number] Notes Entered by: SLOAN BEAL P 05 Apr 2012 1225 ------- ------- ------- ------- -- ATC pool therapy VON ANN 04/05 Released with Work/Duty Limitations [facility]( [facility] Sports Medicin e) [facility] D Sports Medicine) OUTPATIENT [id number] ATC BREANA FERMIN 04/06 Released with Work/Duty Limitations [facility]( [facility] Sports Medicin e) [facility] D Sports Medicine) OUTPATIENT [id number] BREANA ROSSI 04/07 Released with Work/Duty Limitations [facility]( [facility] Sports Medicin e) [facility] D Sports Medicine) OUTPATIENT [id number] Notes Entered by: SLOAN BEAL 07 Apr 2012 1332 ------- ------- ------- ------- -- ATC pool therapy TY COTTON 04/07 Released with Work/Duty Limitations [facility]( [facility] Sports Medicin e) [facility] D Sports Medicine) OUTPATIENT [id number] ATC BREANA FERMIN 04/08 Released with Work/Duty Limitations [facility]( [facility] Sports Medicin e) [facility] D Sports Medicine) OUTPATIENT [id number] atc BREANA FERMIN 04/11 Released with Work/Duty Limitations [facility]( [facility] Sports Medicin e) [facility] D Sports Medicine) OUTPATIENT [id number] F/U RT FEM NECK SFX BREANA FERMIN 04/13 Released with Work/Duty Limitations [facility]( [facility] Sports Medicin e) [facility] D Sports Medicine) OUTPATIENT [id number] atc/bam BREANA FERMIN 04/15 Released with Work/Duty Limitations [facility]( [facility] Sports Medicin e) [facility] D Sports Medicine) OUTPATIENT [id number] ATC/MRP 1 BREANA FERMIN 04/18 Released with Work/Duty Limitations [facility] Sports Medicin e) [facility] D Sports Medicine) OUTPATIENT [id number] ATC/MRP 1 VON ANN 04/20 Released with Work/Duty Limitations [facility]( [facility] Sports Medicin e) [facility] D Sports Medicine) OUTPATIENT [id number] atc VON ANN 04/22 Released with Work/Duty Limitations [facility]( [facility] Sports Medicin e) [facility] D Sports Medicine) OUTPATIENT [id number] ATC/MRP 1 VON ANN 04/25 Released with Work/Duty Limitations [facility]( [facility] Sports Medicin e) [facility] D Sports Medicine) OUTPATIENT [id number] F/U RT FEM NECK SFX VON ANN 04/27 Released with Work/Duty Limitations [facility]( [facility] Sports Medicin e) [facility] Sports Medicine) OUTPATIENT [id number] ATC/MRP 1 VON ANN 04/29 Released with Work/Duty Limitations [facility] Sports Medicin e) [facility] Sports Medicine) OUTPATIENT [id number] ATC/BMA VON ANN 05/02 Released with Work/Duty Limitations [facility]( [facility] Sports Medicin e) [facility] Sports Medicine) OUTPATIENT [id number] atc VON ANN 05/04 Released with Work/Duty Limitations [facility] Sports Medicin e) [facility] Sports Medicine) OUTPATIENT [id number] Notes Entered by: SLOAN BEAL 05 May 2012 1353 ------- ------- ------- ------- -- TRX therapy VON ANN 05/05 Released with Work/Duty Limitations [facility] Sports Medicin e) [facility] Sports Medicine) OUTPATIENT [id number] atc VON ANN 05/06 Released with Work/Duty Limitations [facility] Sports Medicin e) [facility] Sports Medicine) OUTPATIENT [id number] atc VON ANN 05/09 Released with Work/Duty Limitations [facility]( [facility] Sports Medicin e) [facility] Sports Medicine) OUTPATIENT [id number] F/U RT FEM NECK SFX VON ANN 05/11 Released with Work/Duty Limitations [facility] Sports Medicin e) [facility] Sports Medicine) OUTPATIENT [id number] ATC VON ANN 05/13 Released with Work/Duty Limitations [facility] Sports Medicin e) [facility] Sports Medicine) OUTPATIENT [id number] atc VON ANN 05/18 Released with Work/Duty Limitations [facility](M [facility]D Sports Medicin e) [facility] D Sports Medicine) OUTPATIENT [id number] F/U RT FEM NECK SFX VON ANN 05/25 Released w/o Limitations [facility](M [facility]D Sports Medicin e) [employer] [place] OUTPATIENT [id number] post crucibl YAHIR Vaca 06/16 Released w/o Limitations [place] [facility] [place] [facility] [place] [facility]) OUTPATIENT [id number] ОЛЕГ Schaffer 08/12 Released w/o Limitations [facility] [place] [facility] [place]) OUTPATIENT [id number] r femur px NATE REDDY 08/12 Immediate Referral [facility] [place] [facility] [place] [facility] OUTPATIENT [id number] R hip VICKEY Michelle 08/15 Released with Work/Duty Limitations [facility] [place] [place] [facility] [place] [facility] [place] OUTPATIENT [id number] phase 1 eval per ANDREA Cesar. R hip OFELIA ARREOLA 08/15 Released with Work/Duty Limitations [facility] [place] [place] [facility] [place] [facility] [place] OUTPATIENT [id number] Notes Entered by: ANURAG SHUKLA 22 Aug 2012 0915 ------- ------- ------- ------- -- R hip CECELIA KOEHLER 08/22 Released with Work/Duty Limitations [facility] [place] [place] [facility] [facility] [place] OUTPATIENT [id number] Notes Entered by: ANURAG SHUKLA N 23 Aug 2012 0825 ------- ------- ------- ------- -- PHASE 1 TX CECELIA KOEHLER 08/23 Released with Work/Duty Limitations [employer] [place] [place] [facility] [employer] [facility] [place] OUTPATIENT [id number] R hip f/u VICKEY OTOOLE 08/30 Released with Work/Duty Limitations [employer] [facility] [place] [place] [facility] [employer] [facility] [place] OUTPATIENT [id number] phase 2 eval per ANDREA Cesar/ R hip. MADHAVI WILLSON S 08/30 Released with Work/Duty Limitations [employer] [place] [place] [facility] [facility] [place] OUTPATIENT [id number] sep pe under 2yrs ROMAN ALTAMIRANO 09/12 Released w/o Limitations [employer] [place] [facility] [place] OUTPATIENT [id number] f/u for RTFD. VICKEY OTOOLE 09/26 Released w/o Limitations [facility] [place] Procedures Combined [...] OR MORE REGIONS, EACH 15 MINUTES 012 [facility] THERAPEUTIC PROCEDURE, 1 OR MORE AREAS, EACH 15 MINUTES; THERAPEUTIC EXERCISES TO DEVELOP STRENGTH AND ENDURANCE, RANGE OF MOTION AND FLEXIBILITY [facility] MANUAL THERAPY TECHNIQUES (EG, MOBILIZATION/ MANIPULATION, MANUAL LYMPHATIC DRAINAGE, MANUAL TRACTION), 1 OR MORE REGIONS, EACH 15 MINUTES [facility] MANUAL THERAPY TECHNIQUES (EG, MOBILIZATION/ MANIPULATION, MANUAL LYMPHATIC DRAINAGE, MANUAL TRACTION), 1 OR MORE REGIONS, EACH 15 MINUTES [facility] MANUAL THERAPY TECHNIQUES (EG, MOBILIZATION/ MANIPULATION, MANUAL LYMPHATIC DRAINAGE, MANUAL TRACTION), 1 OR MORE REGIONS, EACH 15 MINUTES [facility] MANUAL THERAPY TECHNIQUES (EG, MOBILIZATION/ MANIPULATION, MANUAL LYMPHATIC DRAINAGE, MANUAL TRACTION), 1 OR MORE REGIONS, EACH 15 MINUTES [facility] MANUAL THERAPY TECHNIQUES (EG, MOBILIZATION/ MANIPULATION, MANUAL LYMPHATIC DRAINAGE, MANUAL TRACTION), 1 OR MORE REGIONS, EACH 15 MINUTES [facility] MANUAL THERAPY TECHNIQUES (EG, MOBILIZATION/ MANIPULATION, MANUAL LYMPHATIC DRAINAGE, MANUAL TRACTION), 1 OR MORE REGIONS, EACH 15 MINUTES [facility] MANUAL THERAPY TECHNIQUES (EG, MOBILIZATION/ MANIPULATION, MANUAL LYMPHATIC DRAINAGE, MANUAL TRACTION), 1 OR MORE REGIONS, EACH 15 MINUTES [facility] MANUAL THERAPY TECHNIQUES (EG, MOBILIZATION/ MANIPULATION, MANUAL LYMPHATIC DRAINAGE, MANUAL TRACTION), 1 OR MORE REGIONS, EACH 15 MINUTES [facility] THERAPEUTIC PROCEDURE, 1 OR MORE AREAS, EACH 15 MINUTES; THERAPEUTIC EXERCISES TO DEVELOP STRENGTH AND ENDURANCE, RANGE OF MOTION AND FLEXIBILITY [facility] MANUAL THERAPY TECHNIQUES (EG, MOBILIZATION/ MANIPULATION, MANUAL LYMPHATIC DRAINAGE, MANUAL TRACTION), 1 OR MORE REGIONS, EACH 15 MINUTES [facility] THERAPEUTIC PROCEDURE, 1 OR MORE AREAS, EACH 15 MINUTES; AQUATIC THERAPY WITH THERAPEUTIC EXERCISES [facility] MANUAL THERAPY TECHNIQUES (EG, MOBILIZATION/ MANIPULATION, MANUAL LYMPHATIC DRAINAGE, MANUAL TRACTION), 1 OR MORE REGIONS, EACH 15 MINUTES [facility] THERAPEUTIC ACTIVITIES, DIRECT (ONE-ON-ONE) PATIENT CONTACT (USE OF DYNAMIC ACTIVITIES TO IMPROVE FUNCTIONAL PERFORMANCE), EACH 15 MINUTES [facility] THERAPEUTIC PROCEDURE, 1 OR MORE AREAS, EACH 15 MINUTES; AQUATIC THERAPY WITH THERAPEUTIC EXERCISES [facility] MANUAL THERAPY TECHNIQUES (EG, MOBILIZATION/ MANIPULATION, MANUAL LYMPHATIC DRAINAGE, MANUAL TRACTION), 1 OR MORE REGIONS, EACH 15 MINUTES [facility] MANUAL THERAPY TECHNIQUES (EG, MOBILIZATION/ MANIPULATION, MANUAL LYMPHATIC DRAINAGE, MANUAL TRACTION), 1 OR MORE REGIONS, EACH 15 MINUTES [facility] MANUAL THERAPY TECHNIQUES (EG, MOBILIZATION/ MANIPULATION, MANUAL LYMPHATIC DRAINAGE, MANUAL TRACTION), 1 OR MORE REGIONS, EACH 15 MINUTES [facility] MANUAL THERAPY TECHNIQUES (EG, MOBILIZATION/ MANIPULATION, MANUAL LYMPHATIC DRAINAGE, MANUAL TRACTION), 1 OR MORE REGIONS, EACH 15 MINUTES [facility] MANUAL THERAPY TECHNIQUES (EG, MOBILIZATION/ MANIPULATION, MANUAL LYMPHATIC DRAINAGE, MANUAL TRACTION), 1 OR MORE REGIONS, EACH 15 MINUTES [facility] MANUAL THERAPY TECHNIQUES (EG, MOBILIZATION/ MANIPULATION, MANUAL LYMPHATIC DRAINAGE, MANUAL TRACTION), 1 OR MORE REGIONS, EACH 15 MINUTES [facility] MANUAL THERAPY TECHNIQUES (EG, MOBILIZATION/ MANIPULATION, MANUAL LYMPHATIC DRAINAGE, MANUAL TRACTION), 1 OR MORE REGIONS, EACH 15 MINUTES [facility] MANUAL THERAPY TECHNIQUES (EG, MOBILIZATION/ MANIPULATION, MANUAL LYMPHATIC DRAINAGE, MANUAL TRACTION), 1 OR MORE REGIONS, EACH 15 MINUTES [facility] THERAPEUTIC PROCEDURE, 1 OR MORE AREAS, EACH 15 MINUTES; THERAPEUTIC EXERCISES TO DEVELOP STRENGTH AND ENDURANCE, RANGE OF MOTION AND FLEXIBILITY [facility] THERAPEUTIC PROCEDURE, 1 OR MORE AREAS, EACH 15 MINUTES; THERAPEUTIC EXERCISES TO DEVELOP STRENGTH AND ENDURANCE, RANGE OF MOTION AND FLEXIBILITY [facility] MANUAL THERAPY TECHNIQUES (EG, MOBILIZATION/ MANIPULATION, MANUAL LYMPHATIC DRAINAGE, MANUAL TRACTION), 1 OR MORE REGIONS, EACH 15 MINUTES [facility] MANUAL THERAPY TECHNIQUES (EG, MOBILIZATION/ MANIPULATION, MANUAL LYMPHATIC DRAINAGE, MANUAL TRACTION), 1 OR MORE REGIONS, EACH 15 MINUTES [facility] THERAPEUTIC PROCEDURE, 1 OR MORE AREAS, EACH 15 MINUTES; THERAPEUTIC EXERCISES TO DEVELOP STRENGTH AND ENDURANCE, RANGE OF MOTION AND FLEXIBILITY [facility] MANUAL THERAPY TECHNIQUES (EG, MOBILIZATION/ MANIPULATION, MANUAL LYMPHATIC DRAINAGE, MANUAL TRACTION), 1 OR MORE REGIONS, EACH 15 MINUTES [facility] THERAPEUTIC PROCEDURE, 1 OR MORE AREAS, EACH 15 MINUTES; AQUATIC THERAPY WITH THERAPEUTIC EXERCISES [facility] THERAPEUTIC PROCEDURE, 1 OR MORE AREAS, EACH 15 MINUTES; THERAPEUTIC EXERCISES TO DEVELOP STRENGTH AND ENDURANCE, RANGE OF MOTION AND FLEXIBILITY [facility] ATHLETIC TRAINING EVALUATION [facility] APPLICATION OF A MODALITY TO 1 OR MORE AREAS; HOT OR COLD PACKS [facility] APPLICATION OF A MODALITY TO 1 OR [...] EACH ADDITIONAL VACCINE (SINGLE OR COMBINATION VACCINE/TOXOID) [facility] FITTING OF SPECTACLES, EXCEPT FOR APHAKIA; MONOFOCAL [facility] COLLECTION OF VENOUS BLOOD BY VENIPUNCTURE [facility] PHYS/OTH QUALIFIED HEALTH KOSHER BUTCHER QUALIFIED,EDUCATION, TRAIN,LICENSURE/REGU LATION (WHEN APPLICABLE) EDUC SER RENDERED TO PATS IN A GRP SETTING (EG,,OBESITY ,OR DIABETIC INSTRUCT) DoD Physical Therapy: ___ Se ion Segments, 15 Minutes Each Physical Therapy: ___ Session Segments, 15 Minutes Each [id number] 012 YANDEL BHAKTA J X 25 MIN THEREX TO RT HIP DoD Modalities Cryotherapy Cold Packs Modalities Cryotherapy Cold Packs 34557 012 CARSON BHAKTAMER J X 15 MIN TO RT HIP DoD Physical Therapy: ___ Se ion Segments, 15 Minutes Each Physical Therapy: ___ Session Segments, 15 Minutes Each 65560 012 FILAMOR YANDEL J X 25 MIN THEREX TO RT HIP DoD Modalities Cryotherapy Cold Packs Modalities Cryotherapy Cold Packs 80466 012 YONY YANDEL J X 15 MIN TO RT HIP DoD Physical Therapy: ___ Se ion Segments, 15 Minutes Each Physical Therapy: ___ Session Segments, 15 Minutes Each 40446 012 FILAMOR YANDEL J X 30 MIN THEREX TO RT HIP DoD Modalities Cryotherapy Cold Packs Modalities Cryotherapy Cold Packs 80181 012 KEILA IBARRA [facility] Exercises A isted Exercises For [place] [address] KEILA IBARRA [facility] Vaccines Viral Yellow Fever Vaccines Viral Yellow Fever 09938 [facility] Vaccines Viral Varicella (Active) Vaccines Viral Varicella (Active) 04770 [facility] Supervised Injection Intramuscular Antibiotic Supervised Injection Intramuscular Antibiotic 21873 [facility] Injection, penicillin g benzathine, 100,000 units [facility] Immunization Administration One Vaccine Immunization Administration One Vaccine 82174 [facility] Immunization Administration Each Additional Vaccine [facility] Physical Therapy: ___ Se ion Segments, 15 Minutes Each Physical Therapy: ___ Session Segments, 15 Minutes Each 76062 YANDEL BHAKTA X 10 MIN THEREX TO RT KNEE DoD Modalities Cryotherapy Cold Packs Modalities Cryotherapy Cold Packs 03892 012 YANDEL BHAKTA X 15 MIN TO RT KNEE DoD Vaccines Viral Polio, Inactivated (Salk) Vaccines Viral Polio, Inactivated (Salk) 70245 [facility] Injection, penicillin g benzathine, 100,000 units [facility] Immunization Administration One Vaccine Immunization Administration One Vaccine 14590 [facility] Immunization Administration Each Additional Vaccine [facility] Vaccines Viral Varicella (Active) Vaccines Viral Varicella (Active) 74468 [facility] Hepatitis A And Hepatitis B (Intramuscular Use) Adult Dosage Hepatitis A And Hepatitis B (Intramuscular Use) [facility] Injection Intramuscular Supervised Injection Intramuscular 56497 [facility] Spectacles Services Fitting Monofocals (Not For Aphakia) [facility] Fitting Monofocals (Not For Aphakia) 55854 [place] [facility] Determination Of Refractive State Determination Of Refractive State 32031 [place] [facility] Ophthalmological New Patient Start Intermediate Level Care Ophthalmological New Patient Start Intermediate Level Care 00975 [place] [facility] Collection Of Capillary Blood Specimen Collection Of Capillary Blood Specimen 48737 [place] [facility] Meningococcal Polysaccharide Vaccine (Active) Meningococcal Polysaccharide Vaccine (Active) 03921 [place] [facility] Immunization Administration Each Additional Vaccine [place] [facility] Hepatitis A And Hepatitis B (Intramuscular Use) Adult Dosage Hepatitis A And Hepatitis B (Intramuscular Use) Adult Dosage 45891 [place] [facility] Pneumococcal Polysaccharide Vaccine Adult Dos For Intramusc Pneumococcal Polysaccharide Vaccine Adult Dos For Intramusc 25809 [place] [facility] Immunization Administration One Vaccine Immunization Administration One Vaccine 80470 [place] [facility] Tdap Vaccine Seven Years Of Age And Above Tdap Vaccine Seven Years Of Age And Above 76835 [place] [facility] Skin Test Anergy Tuberculin Intradermal Skin Test Anergy Tuberculin Intradermal 37625 [place] [facility] Venipuncture Venipuncture 95389 [place] [facility] Threshold Audiogram (Pure Tone) Threshold Audiogram (Pure Tone) 19901 MARION PYLE [facility] -Supervised Group Educational Services MARION PYLE [facility] Psychiatric Evaluation Review of Records and Reports Psychiatric Evaluation Review of Records and Reports 71238 DIANE DOZIER [facility] Psychiatric Therapy Individual Approximately 45-50 Minutes DIANE DOZIER [facility] Athletic Training Re-evaluation Athletic Training Re-evaluation 63021 MADHAVI WILLSON 20 MIN RE-EVAL FOR PHASE 2 TX PLAN. [facility] Physical Therapy: ___ Se ion Segments, 15 Minutes Each Physical Therapy: ___ Session Segments, 15 Minutes Each 62466 013 MADHAVI WILLSON 20 MIN DEMO AND SHORT TRIAL OF TX PLAN BY PATIENT. DoD Modalities Cryotherapy Cold Packs Modalities Cryotherapy Cold Packs 73353 013 ZAKIA, CECELIA ESCOBAR Ice pack x 15min DoD Physical Therapy: ___ Se ion Segments, 15 Minutes Each Physical Therapy: ___ Session Segments, 15 Minutes Each 98552 013 ZAKIA, CECELIA ESCOBAR TherEx for R thigh x 40min DoD Modalities Cryotherapy Cold Packs Modalities Cryotherapy Cold Packs 35482 013 ZAKIA, CECELIA ESCOBAR Ice pack x 15in DoD Physical Therapy: ___ Se ion Segments, 15 Minutes Each Physical Therapy: ___ Session Segments, 15 Minutes Each 81600 013 ZAKIA, CECELIA ESCOBAR TherEx for R thigh x 40min DoD Modalities Heat Hot Packs Modalities Heat Hot Packs 33098 013 OFELIA ARREOLA A X 10 MIN TO R HIP. [facility] PT A e ment Kinetic Training PT Assessment Kinetic Training 04778 OFELIA ARREOLA A X 8 MIN COACHING PT ON ACTIVITIES OF DAILY LIVING TO PREVENT PAIN INCREASES. [facility] Phys Therapy Education Self Care Training - Per 15 Minutes Phys Therapy Education Self Care Training - Per 15 Minutes 75623 013 OFELIA ARREOLA A X 10 MIN HEP. PT UNDERSTANDS THE NEED FOR ROM EXERCISES. PT DEMONSTRATES KNOWLEDGE OF HIS HEP. [facility] Physical Therapy: ___ Se ion Segments, 15 Minutes Each Physical Therapy: ___ Session Segments, 15 Minutes Each 55784 013 OFELIA ARREOLA A THEREX X 25 MIN TO R HIP. [facility] Athletic Training Evaluation Athletic Training Evaluation 05647 OFELIA ARREOLA X 8 MIN EVALUATION OF R HIP TO CREATE PLAN OF CARE. [facility] Screening to determine the appropriatene of consideration of an individual for participation in a specified program, project or treatment protocol, per encounter ОЛЕГ TIM Dr. Supervised Injection Intramuscular Antibiotic Supervised Injection Intramuscular Antibiotic 80419 GLENROY, ОЛЕГ E DoD Exercises A isted Exercises For ROM [place]ercises [place] 42270 012 BARSS, ELENA M DoD Mobilization Soft Ti ue Mobilization Soft Tissue 43241 012 BARSS, ELENA M DoD PT A e ment Kinetic Training PT Assessment Kinetic Training 22474 012 BARSS, ELENA M DoD Mobilization Soft Ti ue Mobilization Soft Tissue 43342 012 BARSS, ELENA M DoD Exercises A isted Exercises For ROM Exercises Assisted [place] 51725 012 BARSS, ELENA M DoD PT A e ment Kinetic Training PT Assessment Kinetic Training 39055 012 BARSS, ELENA M DoD Mobilization Soft Ti ue Mobilization Soft Tissue 34563 012 BARSS, ELENA Lorenzo DoD Exercises A isted Exercises For [place] 32908 012 BARSS, ELENA M DoD PT A e ment Kinetic Training PT Assessment Kinetic Training 55796 012 BARSS, ELENA M DoD Mobilization Soft Ti ue Mobilization Soft Tissue 33942 012 BARSS, ELENA M DoD Exercises A isted Exercises For ROM Exercises [place] 58704 012 BARSS, ELENA Lorenzo DoD PT A e ment Kinetic Training PT Assessment Kinetic Training 06190 012 BARSS, ELENA Lorenzo DoD Exercises A isted Exercises For ROM [place]erc[place] 70132 012 STEPAN ARTHUR DoD Exercises A isted Exercises For ROM Exercises [place] 35394 012 BARSS, ELENA M DoD Mobilization Soft Ti ue Mobilization Soft Tissue 69086 012 BARSS, ELENA Lorenzo DoD PT A e ment Kinetic Training PT Assessment Kinetic Training 52758 012 BARSS, ELENA Lorenzo DoD Exercises A isted Exercises For ROM Exercises Assisted [place]ises [place] ROM 34373 012 BARSS, ELENA M DoD Mobilization Soft Ti ue Mobilization Soft Tissue 98385 012 BARSS, ELENA Lorenzo DoD PT A e ment Kinetic Training PT Assessment Kinetic Training 11441 012 BARSS, ELENA Lorenzo DoD Mobilization Soft Ti ue Mobilization Soft Tissue 95978 012 FILAMOR, YANDEL J DoD Exercises A isted Exercises For ROM Exercises [place] 34055 012 FILAMOR, YANDEL J DoD PT A e ment Kinetic Training PT Assessment Kinetic Training 36033 012 FILAMOR, YANDEL J DoD Mobilization Soft Ti ue Mobilization Soft Tissue 67640 FILAMOR, YANDEL J DoD Exercises A isted Exercises For ROM Exercises Assisted [place]ercises [place] ROM 05472 FILAMKEYSHA, YANDEL J DoD PT A e ment Kinetic Training PT Assessment Kinetic Training 60362 FILAMOR, YANDEL J DoD Mobilization Soft Ti ue Mobilization Soft Tissue 80911 012 BARSSELENA Exercises A isted Exercises For ROM Exerc[place] 75178 012 BARSS, ELENA Lucero PT A e ment Kinetic Training PT Assessment Kinetic Training 83813 012 BARSSELENA Exercises A isted Exercises For ROM Exercises Ass[place] 85827 012 BARSS, ELENA Lucero Mobilization Soft Ti ue Mobilization Soft Tissue 90617 012 BARSSELENA PT A e ment Kinetic Training PT Assessment Kinetic Training 38176 012 BARSSELENA Mobilization Soft Ti ue Mobilization Soft Tissue 21372 012 BARSSELENA Exercises A isted Exercises For ROM Exercises Assisted [place] ROM 79299 012 BARSSELENA PT A e ment Kinetic Training PT Assessment Kinetic Training 92197 012 BARSSELENA Exercises A isted Exercises For ROM Exercises [place] 50819 012 BARSS, ELENA Lucero Mobilization Soft Ti ue Mobilization Soft Tissue 84595 012 BARSSELENA PT A e ment Kinetic Training PT Assessment Kinetic Training 46900 012 BARSSELENA Exercises A isted Exercises For ROM Exercises Assisted [place]ercises For ROM 00773 012 BARSSELENA PT A e ment Kinetic Training PT Assessment Kinetic Training 10247 012 BARSS, ELENA Lucero Mobilization Soft Ti ue Mobilization Soft Tissue 91866 012 BARSS, ELENA Lucero Exercises A isted Exercises For ROM Exercises Assisted Exercises For ROM 71477 012 BARSS, ELENA M Nic Mobilization Soft Ti ue Mobilization Soft Tissue 27517 012 BARSS, ELENA Lucero PT A e ment Kinetic Training PT Assessment Kinetic Training 67537 012 BARSS, ELENA M Nic Aquatic Exercises Aquatic Exercises 28077 04/07 012 STEPAN ARTHUR Mobilization Soft Ti ue Mobilization Soft Tissue 70869 012 BARSS, ELENA Lucero Exercises A isted Exercises For ROM Exercises [place] 20531 012 BARSS, ELENA Lucero PT A e ment Kinetic Training PT Assessment Kinetic Training 63549 012 BARSS, ELENA Lucero Mobilization Soft Ti ue Mobilization Soft Tissue 62867 012 BARSS, ELENA Lucero Exercises A isted Exercises For ROM Exercises Assisted [place]ercises For ROM 92563 012 BARSS, ELENA Lucero PT A e ment Kinetic Training PT Assessment Kinetic Training 17843 012 BARSS, ELENA Lucero Aquatic Exercises Aquatic Exercises 00957 04/05 012 STEPAN ARTHUR Mobilization Soft Ti ue Mobilization Soft Tissue 39184 012 BARSS, ELENA Lucero Exercises A isted Exercises For ROM Exercises Assisted [place] ROM 58327 012 BARSS, ELENA Lucero PT A e ment Kinetic Training PT Assessment Kinetic Training 16349 012 BARSS, ELENA Lucero Mobilization Soft Ti ue Mobilization Soft Tissue 67978 012 BARSS, ELENA Lucero Exercises A isted Exercises For ROM Exerc[place] 99233 012 BARSS, ELENA M Nic Mobilization Soft Ti ue Mobilization Soft Tissue 96621 012 BARSS, ELENA Lorenzo DoD Exercises A isted Exercises For ROM Exercises [place] 34390 012 BARSS, ELENA M DoD Exercises A isted Exercises For ROM Exercises Assisted Exercises For ROM 71605 012 BARSS, ELENA M Nic Mobilization Soft Ti ue Mobilization Soft Tissue 71238 012 BARSS, ELENA M DoD Mobilization Soft Ti ue Mobilization Soft Tissue 73334 012 BARSS, ELENA M DoD Exercises A isted Exercises For ROM Exercises Assisted [place] ROM 80091 012 BARSS, ELENA M DoD Exercises A isted Exercises For ROM Exercises Assisted Exercises For ROM 16571 012 BARSS, ELENA M DoD Mobilization Soft Ti ue Mobilization Soft Tissue 53557 012 BARSS, ELENA M DoD Mobilization Soft Ti ue Mobilization Soft Tissue 65478 012 BARSS, ELENA M DoD Exercises A isted Exercises For ROM Exercises Assisted [place]ises [place] ROM 20370 012 BARSS, ELENA M DoD Exercises A isted Exercises For ROM Exercises Assisted [place]ises [place] ROM 38815 012 BARSS, ELENA M DoD Mobilization Soft Ti ue Mobilization Soft Tissue 77807 BARSS, ELENA M DoD Mobilization Soft Ti ue Mobilization Soft Tissue 15362 012 BARSS, ELENA M DoD Exercises A isted Exercises For ROM Exercises [place] 33561 012 BARSS, ELENA M DoD Mobilization Soft Ti ue Mobilization Soft Tissue 56206 012 BARSS, ELENA M DoD Exercises A isted Exercises For ROM Exercises [place] 13622 012 BARSS, ELENA M DoD Mobilization Soft Ti ue Mobilization Soft Tissue 50938 BARSS, ELENA M DoD Exercises A isted Exercises For ROM Exercises Assisted [place]ises [place] ROM 34574 012 BARSS, ELENA M DoD Exercises A isted Exercises For ROM Exercises [place] 31845 012 BARSS, ELENA M DoD Mobilization Soft Ti ue Mobilization Soft Tissue 44812 BARSS, ELENA M DoD Mobilization Soft Ti ue Mobilization Soft Tissue 68405 SHANTI CHAVARRIA Exercises A isted Exercises [place] [address] SHANTI CHAVARRIA Exercises A isted Exercises For ROM [place]erc[place] 46861 012 BARSS, ELENA M DoD Mobilization Soft Ti ue Mobilization Soft Tissue 49313 012 BARSS, ELENA Maura DoD Aquatic Exercises Aquatic Exercises 19493 02/22 012 STEPAN ARTHUR DoD Mobilization Soft Ti ue Mobilization Soft Tissue 36821 ELENA WALTERS DoD Exercises A isted Exercises For [place] 60757 012 ELENA WALTERS [facility] Athletic Training Evaluation Athletic Training Evaluation 93187 012 ELENA WALTERS [facility] Modalities Cryotherapy Cold Packs Modalities Cryotherapy Cold Packs 81672 012 YANDEL BHAKTA X 15 MIN TO RT HIP DoD Social History Combined list of available smoking, tobacco, and 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 Social History Type Response Date Comment Sourc e Tobacco smoking status NHIS VA-TOBACCO USER EVERY DAY 08/19/2022 [facility] History of tobacco use VA-TOBACCO USE WI 30 MIN OF WAKEUP 08/19/2022 [facility] This section is an empty social history section. DoD
--- OUTSIDE RECORDS SUMMARY | 2024-12-25 18:11 | XMS_ITS | Encounter Summary ---
[facility] Address [address], [place] [address] Care Team Providers Care Piece Dyer Name Role Phone No Primary/Referring, Phy Primary Care Provider Unavailable Encounter Details Date Type Department Care Team (Late st Contact Info) Description 03/02/1996 Orders Only [facility] Teressa Newman MD Social History Tobacco Use Types Packs/Day Years Used Date Smoking Tobacco: Never Assessed Sex and Gender Information Value Date Recorded Sex Assigned at Not on file Legal Sex Male 4:54 AM CDT Gender Identity Not on file Sexual Orientation Not on file documented as of this encounter Plan of Treatment Not on file documented as of this encounter Visit Diagnoses Not on filedocumented in this encounter Care Teams Piece Dyer Relationship Specialty Start Date End Date No Primary/Referring, Phy PCP - General 10/16/14 documented as of this encounter
--- OUTSIDE RECORDS SUMMARY | 2024-12-25 18:11 | XMS_ITS | Encounter Summary ---
[facility] Address [address] [address] Care Team Providers Care Freight Conductor Name Role Phone No Primary/Referring, Phy Primary Care Provider Unavailable Encounter Details Date Type Department Care Team (Late st Contact Info) Description 09/14/1995 Orders Only [facility] [address] [address] [place] [id number] Social History Tobacco Use Types Packs/Day Years [...] on filedocumented in this encounter Care Teams Freight Conductor Relationship Specialty Start Date End Date No Primary/Referring, Camerony PCP - General 10/16/14 documented as of this encounter
--- OUTSIDE RECORDS SUMMARY | 2024-12-25 18:11 | XMS_ITS | Encounter Summary ---
[facility] Address [address] [address] Care Team Providers Care Metallurgical Laboratory Assistant Name Role Phone No Primary/Referring, Phy Primary Care Provider Unavailable Encounter Details Date Type Department Care Team (Latest Contact Info) Description 10/11/1996 Orders Only Trevor Cortes MD [facility] [place] [address] Social History Tobacco Use Types Packs/Day Years [...] on filedocumented in this encounter Care Teams Metallurgical Laboratory Assistant Relationship Specialty Start Date End Date No Primary/Referring, Mani PCP - General 10/16/14 documented as of this encounter
--- OUTSIDE RECORDS SUMMARY | 2024-12-25 18:11 | XMS_ITS | Encounter Summary ---
Author Organization [facility] Address [address] [address] Care Team Providers Care Folder Seamer Name Role Phone No Primary/Referring, Phy Primary Care Provider Unavailable Encounter Details Date Type Department Care Team (Late st Contact Info) Description 08/08/1996 Orders Only [facility] Teressa Newman MD [...] on filedocumented in this encounter Care Teams Folder Seamer Relationship Specialty Start Date End Date No Primary/Referring, Phy PCP - General 10/16/14 documented as of this encounter
--- OUTSIDE RECORDS SUMMARY | 2024-12-25 18:11 | XMS_ITS | Encounter Summary ---
Author Organization [facility] Address [address] [address] Care Team Providers Care Can Worker Name Role Phone No Primary/Referring, Phy Primary Care Provider Unavailable Encounter Details Date Type Department Care Team (Late st Contact Info) Description 09/02/1995 Orders Only [facility] [address] [address] [place], [place] [phone] Social History Tobacco Use Types Packs/Day Years [...] on filedocumented in this encounter Care Teams Can Worker Relationship Specialty Start Date End Date No Primary/Referring, Camerony PCP - General 10/16/14 documented as of this encounter
--- OUTSIDE RECORDS SUMMARY | 2024-12-25 18:11 | XMS_ITS | Encounter Summary ---
Author [facility] Address [address] [address] Care Team Providers Care Teacher Specialist Name Role Phone No Primary/Referring, Phy Primary Care Provider Unavailable Encounter Details Date Type Department Care Team (Late st Contact Info) Description 09/20/1995 Orders Only [facility] [address] [address] [place] [phone] Social History Tobacco Use Types Packs/Day Years [...] on filedocumented in this encounter Care Teams Teacher Specialist Relationship Specialty Start Date End Date No Primary/Referring, Camerony PCP - General 10/16/14 documented as of this encounter
--- OUTSIDE RECORDS SUMMARY | 2024-12-25 18:11 | XMS_ITS | Encounter Summary ---
Author Organization [facility] Address [address] [address] Care Team Providers Care Clinical Researcher Name Role Phone No Primary/Referring, Phy Primary Care Provider Unavailable Encounter Details Date Type Department Care Team (Late st Contact Info) Description 03/28/1996 Orders Only [facility] Teressa Newman MD [...] on filedocumented in this encounter Care Teams Clinical Researcher Relationship Specialty Start Date End Date No Primary/Referring, Phy PCP - General 10/16/14 documented as of this encounter
--- OUTSIDE RECORDS SUMMARY | 2024-12-25 18:11 | XMS_ITS | Encounter Summary ---
Author Organization [facility] Address [address] [address] Care Team Providers Care Master Baker Name Role Phone No Primary/Referring, Phy Primary Care Provider Unavailable Encounter Details Date Type Department Care Team (Late st Contact Info) Description 04/19/1996 Orders Only [facility] Teressa Newman MD [...] on filedocumented in this encounter Care Teams Master Baker Relationship Specialty Start Date End Date No Primary/Referring, Phy PCP - General 10/16/14 documented as of this encounter
--- OUTSIDE RECORDS SUMMARY | 2024-12-25 18:11 | XMS_ITS | Encounter Summary ---
Author Organization [facility] Address [address] [address] Care Team Providers Care Paper Plate Machine Tender Name Role Phone No Primary/Referring, Phy Primary Care Provider Unavailable Encounter Details Date Type Department Care Team (Late st Contact Info) Description 11/23/1994 Orders Only [facility] Teressa Newman MD [...] on filedocumented in this encounter Care Teams Paper Plate Machine Tender Relationship Specialty Start Date End Date No Primary/Referring, Phy PCP - General 10/16/14 documented as of this encounter
--- OUTSIDE RECORDS SUMMARY | 2024-12-25 18:11 | XMS_ITS | Encounter Summary ---
Author Organization [facility] Address [address] [address] Care Team Providers Care Science Instructor Name Role Phone No Primary/Referring, Phy Primary Care Provider Unavailable Encounter Details Date Type Department Care Team (Late st Contact Info) Description 09/27/1996 Orders Only [facility] Teressa Newman MD [...] on filedocumented in this encounter Care Teams Science Instructor Relationship Specialty Start Date End Date No Primary/Referring, Phy PCP - General 10/16/14 documented as of this encounter
--- OUTSIDE RECORDS SUMMARY | 2024-12-25 18:11 | XMS_ITS | Encounter Summary ---
Author Organization [facility] Address [address] [address] Care Team Providers Care Ep Specialist Name Role Phone No Primary/Referring, Phy Primary Care Provider Unavailable Encounter Details Date Type Department Care Team (Late st Contact Info) Description 03/06/1996 Orders Only [facility] Teressa Newman MD [...] on filedocumented in this encounter Care Teams Ep Specialist Relationship Specialty Start Date End Date No Primary/Referring, Phy PCP - General 10/16/14 documented as of this encounter
--- OUTSIDE RECORDS SUMMARY | 2024-12-25 18:11 | XMS_ITS | Encounter Summary ---
Author Organization [facility] Address [address] [address] Care Team Providers Care Steam Press Tender Name Role Phone No Primary/Referring, Phy Primary Care Provider Unavailable Encounter Details Date Type Department Care Team (Latest Contact Info) Description 05/20/1996 Orders Only Dennis Mobley MD [facility] [place] [address] [place], [place] [phone] Social History Tobacco Use Types Packs/Day Years [...] on filedocumented in this encounter Care Teams Steam Press Tender Relationship Specialty Start Date End Date No Primary/Referring, Camerony PCP - General 10/16/14 documented as of this encounter
--- OUTSIDE RECORDS SUMMARY | 2024-12-25 18:11 | XMS_ITS | Encounter Summary ---
Author Organization [facility] Address [address] [address] Care Team Providers Care Animal Nurse Name Role Phone No Primary/Referring, Phy Primary Care Provider Unavailable Encounter Details Date Type Department Care Team (Latest Contact Info) Description 10/03/1995 Orders Only Aj Trinidad Social History Tobacco Use Types Packs/Day Years [...] on filedocumented in this encounter Care Teams Animal Nurse Relationship Specialty Start Date End Date No Primary/Referring, Camerony PCP - General 10/16/14 documented as of this encounter
--- OUTSIDE RECORDS SUMMARY | 2024-12-25 18:11 | XMS_ITS | Encounter Summary ---
Author Organization [facility] Address [address] [address] Care Team Providers Care Director Television Name Role Phone No Primary/Referring, Phy Primary Care Provider Unavailable Encounter Details Date Type Department Care Team (Late st Contact Info) Description 08/06/1995 Orders Only [facility] [place] [address] [address] [place], [place] [phone] Social History Tobacco Use Types Packs/Day Years [...] on filedocumented in this encounter Care Teams Director Television Relationship Specialty Start Date End Date No Primary/Referring, Camerony PCP - General 10/16/14 documented as of this encounter
--- OUTSIDE RECORDS SUMMARY | 2024-12-25 18:11 | XMS_ITS | Encounter Summary ---
Author Organization [facility] Address [address] [address] Care Team Providers Care Glue Machine Operator Name Role Phone No Primary/Referring, Phy Primary Care Provider Unavailable Encounter Details Date Type Department Care Team (Latest Contact Info) Description 07/04/1996 Orders Only Tyesha Rosen Social History Tobacco Use Types Packs/Day Years [...] on filedocumented in this encounter Care Teams Glue Machine Operator Relationship Specialty Start Date End Date No Primary/Referring, Camerony PCP - General 10/16/14 documented as of this encounter
--- OUTSIDE RECORDS SUMMARY | 2024-12-25 18:12 | XMS_ITS | Encounter Summary ---
Author Organization [facility] Address [address] [address] Care Team Providers Care Biodiesel Technology Manager Name Role Phone No Primary/Referring, Phy Primary Care Provider Unavailable Encounter Details Date Type Department Care Team (Late st Contact Info) Description 03/23/1997 Orders Only [facility] Teressa Newman MD [...] on filedocumented in this encounter Care Teams Biodiesel Technology Manager Relationship Specialty Start Date End Date No Primary/Referring, Phy PCP - General 10/16/14 documented as of this encounter
--- OUTSIDE RECORDS SUMMARY | 2024-12-25 18:12 | XMS_ITS | Clinical Summary ---
Author Organization [facility] Address [address] [place] [address] Care Team Providers Care Slide Developer Name Role Phone No Ref-Primary, Physician Primary Care Provider Allergies No known active allergies Medications No known medications Social History Tobacco Use Types Packs/Day Years Used Date Smoking Tobacco: Every Day Smokeless Tobacco: Current Alcohol Use Standard Drinks/Week Comments Yes 105 (1 standard drink = 0.6 oz p ure alcohol) ETOH daily Sex and Gender Information Value Date Recorded Sex Assigned at Not on file Legal Sex Male 4:16 AM LOCKS TENDER Gender Identity Not on file Sexual Orientation Not on file Last Filed Vital Signs Vital Sign Reading Time Taken Comments Blood Pressure 155/95 06/05/2019 1:00 AM LOCKS TENDER Pulse 86 06/05/2019 1:00 AM LOCKS TENDER Temperature 36.6 C (97.9 F) 06/05/2019 12:22 AM LOCKS TENDER Respiratory Rate 14 06/05/2019 2:39 AM LOCKS TENDER Oxygen Saturation 96% 06/05/2019 1:08 AM LOCKS TENDER Inhaled Oxygen Concentration - - Weight - - Height - - Body Mass Index - - Plan of Treatment Not on file Insurance * Guarantor: NOEL AVILA Account Type Relation to Patient Date of Phone Billing Address Personal/Family [id number] [address] [facility] Care Teams Slide Developer Relationship Specialty Start Date End Date No Ref-Primary, Physician PCP - General 06/05/19
--- OUTSIDE RECORDS SUMMARY | 2024-12-25 18:12 | XMS_ITS | Clinical Summary ---
Author Organization [employer] [facility] Address [address] [place] [address] Care Team Providers Care Float Operator Name Role Phone No, Pcp [[id number]] Primary Care Provider Unavailabl e Allergies No known active allergies Medications naproxen sodium (ALEVE) 220 mg cap Take 2 capsules by mouth once daily if needed. Active oxyCODONE (ROXICODONE) 5 mg immediate release tabletIndicatio ns:Facial cellulitis Take 1-2 tablets by mouth every 6 hours if needed for Pain Earliest Fill Date: 02/09/16 6 tablet 02/09/2016 2:18 PM CDT 6 Active Additional Information Patient not taking.Reported on 12/25/2024 Active Problems Problem Noted Date Diagnosed Date Nicotine use disorder 02/05/2016 right sided facial cellulitis with small abscess 02/05/2016 Resolved Problems Problem Noted Date Diagnosed Date Resolved Date Facial cellulitis 02/05/2016 02/05/2016 Encounters Date Type Department Care Team Description 12/25/2024 4:35 PM CDT Ancillary Procedure [facility] [address] [facility] [address] [place] [address] Arrived 12/25/2024 4:00 PM CDT Office Visit [facility] [address] [facility] [address] [place] [address] Danelle Arenas NP Laceration 12/25/2024 Travel from Last 3 Months Immunizations Immunization Administration Dates Next Due Tdap 03/05/2023,01/20/2005 Family History Medical History Relation Name Comments Good Health Father Good Health Mother Relation Name Status Comments Father Alive Mother Alive Social History Tobacco Use Types Packs/Day Years Used Date Smoking Tobacco: Every Day Comments:10-12 cigarettes ev fina other day Alcohol Use Standard Drinks/Week Comments Yes 0 (1 standard drink = 0.6 oz pur e alcohol) few drinks per week Sex and Gender Information Value Date Recorded Sex Assigned at Not on file Legal Sex Male 1:22 PM CDT Gender Identity Not on file Sexual Orientation Not on file Obstetrics History Last Filed Vital Signs Vital Sign Reading Time Taken Comments Blood Pressure 138/83 12/25/2024 4:09 PM CDT Pulse 100 12/25/2024 4:09 PM CDT Temperature 37 C (98.6 F) 12/25/2024 4:09 PM CDT Respiratory Rate 17 12/25/2024 4:09 PM CDT Oxygen Saturation 98% 12/25/2024 4:09 PM CDT Inhaled Oxygen Concentration - - Weight 75 kg (165 lb 5.5 oz) 02/05/2016 5:00 PM CDT Height 175.3 cm (5' 9) 02/05/2016 5:00 PM CDT Body Mass Index 24.42 02/05/2016 5:00 PM CDT Plan of Treatment Health Maintenance Due Date Last Done Comments Depression screening for age 12+ 2004 HIV for age 15-65 11/22/2007 BMI (ht and wt on same day) for age 18+ 2010 Hepatitis C screening for age 18-79 2010 Hepatitis B series for 19+ ( 1 of 3 - 19+ 3-dose series) 11/22/2011 Pneumococcal series for age 6-49 (1 of 2 - PCV) 11/22/2011 COVID-19 vaccine series ( - 2023- season) 2024 Influenza Vaccine (#1) 2025 Tetanus booster 03/05/2033 03/05/2023, 01/20/2005 Procedures Procedure Name Priority Date/Time Associated Diagnosis Comments XR KNEE 3 VIEWS RIGHT STAT 12/25/2024 4:43 PM CDT Right knee injury, initial encounter from Last 3 Months Results * XR KNEE 3 VIEWS RIGHT (12/25/2024 4:43 PM CDT) Anatomical Region Laterality Modality KNEES, KNEE R Digital Radiogra phy 12/25/2024 5:22 PM CDT Narrative 12/25/2024 5:22 PM CDT For Patients: As a result of the Cures Act, medical imaging exams and procedure reports are released immediately into your electronic medical record. You may view this report before your referring provider. If you have questions, please contact your health care provider. Indication: Right knee injury. Technique: Right knee 3 views Comparison: None Findings: Bones: Alignment is normal. No fractures or bone lesions. Joint spaces: Moderate joint effusion. Joint spaces are well maintained. Soft tissues: Unremarkable. Impression: Moderate joint effusion. No evident acute fracture. Dictated by Pedrito Foss MD @ 12/25/2024 5:22:20 PM (Electronically Signed) Procedure Note Pedrito Foss MD - 12/25/2024 For Patients: As a result of the Cures Act, medical imagingexams and procedure reports are released immediately into your electronicmedical record. You may view this report before your referring provider.If you have questions, please contact your health care provider. Indication: Right knee injury. Technique: Right knee 3 views Comparison: None Findings: Bones: Alignment is normal. No fractures or bone lesions. Joint spaces: Moderate joint effusion. Joint spaces are well maintained. Soft tissues: Unremarkable. Impression: Moderate joint effusion. No evident acute fracture. Dictated by Pedrito Foss MD @ 12/25/2024 5:22:20 PM (Electronically Signed) Danelle Arenas NP GENERAL IMAGING Final Result from Last 3 Months Insurance [facility] Advance Directives * Full Code (Latest Code Status on File) Date Activated Date Inactivated Comments 02/05/2016 4:28 PM 02/09/2016 4:54 PM Question Answer Comments Code Status Discussion: Discussed Care Teams Float Operator Relationship Specialty Start Date End Date NO, PCP [[id number]] PCP - General 02/05/16
--- OUTSIDE RECORDS SUMMARY | 2024-12-25 18:12 | XMS_ITS | Encounter Summary ---
Author Organization [facility] Address [address] [address] Care Team Providers Care Restaurant Expeditor Name Role Phone No Primary/Referring, Phy Primary Care Provider Unavailable Encounter Details Date Type Department Care Team (Late st Contact Info) Description 07/04/1997 Orders Only [facility] [place] [address] [address] [place], [place] [id number] Social History Tobacco Use Types Packs/Day Years [...] on filedocumented in this encounter Care Teams Restaurant Expeditor Relationship Specialty Start Date End Date No Primary/Referring, Camerony PCP - General 10/16/14 documented as of this encounter
--- OUTSIDE RECORDS SUMMARY | 2024-12-25 18:12 | XMS_ITS | Encounter Summary ---
Author Organization [facility] Address [address] [address] Care Team Providers Care Oxygen System Tester Name Role Phone No Primary/Referring, Phy Primary Care Provider Unavailable Encounter Details Date Type Department Care Team (Late st Contact Info) Description 03/26/1998 Orders Only [facility] Wei Gregory MD Social History Tobacco Use Types Packs/Day [...] on filedocumented in this encounter Care Teams Oxygen System Tester Relationship Specialty Start Date End Date No Primary/Referring, Phy PCP - General 10/16/14 documented as of this encounter
--- OUTSIDE RECORDS SUMMARY | 2024-12-25 18:12 | XMS_ITS | Encounter Summary ---
Author Organization [facility] Address [address], [place] [address] Care Team Providers Care Patient Consumer Marketer Name Role Phone No Primary/Referring, Phy Primary Care Provider Unavailable Encounter Details Date Type Department Care Team (Late st Contact Info) Description 05/23/1997 Orders Only [facility] [place] [address] [address] [place], [place] [phone] Social History Tobacco Use Types Packs/Day Years [...] on filedocumented in this encounter Care Teams Patient Consumer Marketer Relationship Specialty Start Date End Date No Primary/Referring, Camerony PCP - General 10/16/14 documented as of this encounter
--- OUTSIDE RECORDS SUMMARY | 2024-12-25 18:12 | XMS_ITS | Encounter Summary ---
Author Organization [facility] Address [address], [place] [address] Care Team Providers Care Wire Rope Fabrication Supervisor Name Role Phone No Primary/Referring, Phy Primary Care Provider Unavailable Encounter Details Date Type Department Care Team (Latest Contact Info) Description 11/09/1997 Orders Only [facility] Social History Tobacco Use Types Packs/Day Years [...] on filedocumented in this encounter Care Teams Wire Rope Fabrication Supervisor Relationship Specialty Start Date End Date No Primary/Referring, Camerony PCP - General 10/16/14 documented as of this encounter
--- OUTSIDE RECORDS SUMMARY | 2024-12-25 18:12 | XMS_ITS | Encounter Summary ---
Author Organization [facility] Address [address] [address] Care Team Providers Care Health Plan Manager Name Role Phone No Primary/Referring, Phy Primary Care Provider Unavailable Encounter Details Date Type Department Care Team (Late st Contact Info) Description 10/09/1997 Orders Only [facility] Teressa Newman MD [...] on filedocumented in this encounter Care Teams Health Plan Manager Relationship Specialty Start Date End Date No Primary/Referring, Phy PCP - General 10/16/14 documented as of this encounter
--- OUTSIDE RECORDS SUMMARY | 2024-12-25 18:12 | XMS_ITS | Encounter Summary ---
Author Organization [facility] Address [address] [address] Care Team Providers Care Blow Molding Machine Tender Name Role Phone No Primary/Referring, Phy Primary Care Provider Unavailable Encounter Details Date Type Department Care Team (Late st Contact Info) Description 10/26/1997 Orders Only [facility] [place] [address] [address] [place] [phone] Social History Tobacco Use Types Packs/Day Years [...] on filedocumented in this encounter Care Teams Blow Molding Machine Tender Relationship Specialty Start Date End Date No Primary/Referring, Camerony PCP - General 10/16/14 documented as of this encounter
--- OUTSIDE RECORDS SUMMARY | 2024-12-25 18:12 | XMS_ITS | Encounter Summary ---
Author Organization [facility] Address [address] [address] Care Team Providers Care Assistant Distribution Manager Name Role Phone No Primary/Referring, Phy Primary Care Provider Unavailable Encounter Details Date Type Department Care Team (Late st Contact Info) Description 06/06/1997 Orders Only [facility] [place] [address] [address] [place], [place] [phone] Social History Tobacco Use Types Packs/Day Years [...] on filedocumented in this encounter Care Teams Assistant Distribution Manager Relationship Specialty Start Date End Date No Primary/Referring, Camerony PCP - General 10/16/14 documented as of this encounter
--- OUTSIDE RECORDS SUMMARY | 2024-12-25 18:12 | XMS_ITS | Clinical Summary ---
Author Organization [facility] Address [address] [place] [address] Care Team Providers Care Group Care Worker Name Role Phone No Primary/Referring, Phy Primary Care Provider Unavailable Source Comments You are receiving this document as you are listed as the primary care provider,follow-up provider, or the patient has been referred to you for consultation.This is in compliance with the Medicare and[facility] Cent[facility]aid EHR Incentive Program,which states Providers who transition their patient to another setting of careor provider of care or refers their patient to another provider of care shouldprovide summary care record for each transition of care or referral. [facility] Allergies No known active allergies Medications naproxen sodium (ANAPROX) 220 MG tablet Take 220 mg by mouth two times a day with meals. Active mupirocin (BACTROBAN) 2 % ointmentIndicat ions:Impetigo Apply topically three times a day. 22 g 1 9 Active triamcinolone acetonide (KENALOG) 0.1 % creamIndication s:Skin lesion of left ear Apply topically two times a day. 30 g 1 9 Active doxycycline (VIBRAMYCIN) 100 MG capsuleIndicati ons:Impetigo,Sk in lesion of left ear Take 1 Capsule by mouth two times a day. Pharmacy may substitute hyclate or monohydrate tab or capsule based on insurance. 14 Capsule 9 Active Additional Information Patient not taking.Reported on 02/27/2020 Active Problems Problem Noted Date Diagnosed Date Attention deficit disorder 09/15/2006 Overview (02/21/2015): [facility] Immunizations Immunization Administration Dates Next Due DTP-Hib (Tetramune) 03/09/1994,05/30/1993,1992,01/29/1993 DTaP 12/04/2011,01/24/1999 DTaP/Hib 03/09/1994 Flu Vac (3+ yrs) 01/24/2010,06/11/2008 HepB Ped/Adol (0-18 yrs) 12/01/1995,06/02/1995,1 MCV4 (Menactra) 02/24/2011,06/11/2008 MMR 01/24/1999,03/09/1994,03/09/1994 OPV, Trivalent (Orimune or tOPV) 999,03/09/1994,03/09/1994,03/26/1993 ,01/29/1993 Tdap 01/20/2005 Varicella 01/14/2007,01/24/1997 Family History Medical History Relation Name Comments Hypertension Father maternal aunt Anxiety Mother Depression Mother maternal aunt a nd uncle ADHD Brother 1 Asthma Brother 2 Alcohol/Drug Abuse Paternal Grandfather Cataract Negative Family History Diabetes, Type II Negative Family History Glaucoma Negative Family History Thyroid Disorder Negative Family History Relation Name Status Comments Father Mother Brother 1 Brother 2 Paternal Grandfather Social History Tobacco Use Types Packs/Day Years Used Date Smoking Tobacco: Former Cigarettes Smokeless Tobacco: Never Comments:mother smokes outsi de Alcohol Use Standard Drinks/Week Comments Yes 0 (1 standard drink = 0.6 oz pur e alcohol) Sex and Gender Information Value Date Recorded Sex Assigned at Not on file Legal Sex Male 4:54 AM CDT Gender Identity Not on file Sexual Orientation Not on file Last Filed Vital Signs Vital Sign Reading Time Taken Comments Blood Pressure 132/74 02/27/2020 5:32 PM CDT Pulse 95 02/27/2020 5:32 PM CDT Temperature 36.8 C (98.3 F) 02/27/2020 5:32 PM CDT Respiratory Rate 16 02/27/2020 5:32 PM CDT Oxygen Saturation 100% 02/27/2020 5:32 PM CDT Inhaled Oxygen Concentration - - Weight 73 kg (161 lb) 02/01/2019 10:43 AM CDT Height 174 cm (5' 8.5) 02/01/2019 10:43 AM CDT Body Mass Index 24.12 02/01/2019 10:43 AM CDT Plan of Treatment Health Maintenance Due Date Last Done Comments Hep C Screening (Preventive Services) 1992 HIV Screening (Preventive Services) 2008 Adult Preventive Visit 02/24/2013 1, 01/24/2010, 01/19/2005, Additional history exists DTaP/Tdap/Td Vaccine (8 - Tdap) 12/03/2021 12/04/2011, 01/20/2005, 01/24/1999, Additional history exists COVID-19 Vaccine ( season) 2024 Influenza Vaccine (#1) 2025 01/24/2010, 2008 Zoster/Shingles Vaccine (1 of 2) 2042 Hib Vaccine Completed 03/09/1994, 02/21, 05/30/1993, Additional history exists HepB Vaccine Completed 12/01/1995, 05/24, 03/17/1995 IPV (Polio) Vaccine Completed 01/24/1999, 03/09/1994, 03/09/1994, Additional history exists MCV4 Vaccine Completed 02/24/2011, 06/11/2008 HPV Vaccine Aged Out No longer eligi ble based on patient's age to complete this topic HepA Vaccine Aged Out No longer eligi ble based on patient's age to complete this topic Meningococcal B Vaccine Aged Out No l onger eligible based on patient's age to complete this topic Pneumococcal Vaccine Aged Out No long er eligible based on patient's age to complete this topic Insurance [facility] Care Teams Group Care Worker Relationship Specialty Start Date End Date No Primary/Referring, Phy PCP - General 10/16/14
--- OUTSIDE RECORDS SUMMARY | 2024-12-25 18:12 | XMS_ITS | Encounter Summary ---
[facility] Address [address], [place] [address] Care Team Providers Care Adult Basic Studies Teacher Name Role Phone No Primary/Referring, Phy Primary Care Provider Unavailable Encounter Details Date Type Department Care Team (Late st Contact Info) Description 02/19/1997 Orders Only [facility] [id number] [place], [place] [phone] Social History Tobacco Use Types Packs/Day Years [...] on filedocumented in this encounter Care Teams Adult Basic Studies Teacher Relationship Specialty Start Date End Date No Primary/Referring, Camerony PCP - General 10/16/14 documented as of this encounter
--- OUTSIDE RECORDS SUMMARY | 2024-12-25 18:12 | XMS_ITS | Encounter Summary ---
Author Organization [facility] Address [address] [address] Care Team Providers Care Deputy Clerk Name Role Phone No Primary/Referring, Phy Primary Care Provider Unavailable Encounter Details Date Type Department Care Team (Late st Contact Info) Description 01/20/1999 Orders Only [facility] [id number] [place], [place] [id number] Social History Tobacco Use Types Packs/Day Years [...] on filedocumented in this encounter Care Teams Deputy Clerk Relationship Specialty Start Date End Date No Primary/Referring, Camerony PCP - General 10/16/14 documented as of this encounter
[2024-12-25 18:17] VITALS: BP 145/81; PULSE 102; RESP 16; TEMP 36.6; O2SAT 98; BMI 21.4
--- NOTE | 2024-12-25 21:02 | ED_ITS ---
HPI - Wound/Laceration General Chief Complaint: Laceration/Wound Stated Complaint: R knee LAC Time Seen by Provider: 12/25/24 19:49 History of Present Illness HPI narrative: This 34-year-old male comes in with a laceration to his right knee. He slipped and fell onto his some angle iron and cut into his skin overlying the right patella. His tetanus status is up-to-date. Related Data Home Medications ?Medication ?Instructions ?Recorded ?Confirmed medical cannibus PO 03/05/23 01/06/24 naproxen sodium 220 mg capsule 440 mg PO QDAY 03/05/23 01/06/24 (Aleve) Allergies Allergy/AdvReac Type Severity Reaction Status Date / Time No Known Drug Allergies Allergy Verified 01/06/24 15:38 Review of Systems Status of ROS: Reports: 10 or more systems reviewed and unremarkable except as noted in History and below Narrative: Constitutional: No fevers, no weight gain or loss. Eyes: No discharge. No vision changes. HENT: No congestion, no sore throat, no ear pain. Cardiovascular: No chest pain, no palpitations. Respiratory: No shortness of breath, no wheezes, no cough. Gastrointestinal: No abdominal pain, no vomiting, no diarrhea. Genitourinary: No dysuria, no hematuria. Musculoskeletal: Normal range of motion. Skin: No rashes, no pruritis. Neurological: No dizziness, weakness, sensory change, speech change. Endo/Heme/Allergies: No bruising or bleeding. No polydipsia. Pysch: no suicidality, no anxiety, no insomnia. All other systems reviewed and are negative. PFSH PFS Surgical History (Updated 04/05/23 @ 02:10 by Lupillo Abdi MD) History of hip surgery ?Z98.890 - Other specified postprocedural states (ICD-10) Social History (Updated 03/05/23 @ 08:29 by Jessica Traore ~ [facility], [facility]) What is your current living situation?: I presently have a place to live Problems where you live: pests, such as bugs, ants, or mice, mold and oven or stove not working In the past 12 months, utilities in danger of being shut off: no In past 12 months, lack of transportation kept you from medical appts, meetings, work, or getting things needed for daily living: no In the past 12 mos, have been you worried that your food would run out before yo u had money to buy more?: never true In the past 12 mos, the food you bought just didn't last and you didn't have money to buy more?: never true How often does anyone, including family, friends and others, physically hurt you : never How often does anyone, including family, friends and others, insult or talk down to you: sometimes How often does anyone, including family, friends and others, threaten you with harm: never How often does anyone, including family, friends and others, scream or curse at you: sometimes Health Related Social Needs: Inadequate housing (Z59.1) and Other personal risk factors, not elsewhere classified (Z91.89) Exam Narrative: Exam Narrative: Constitutional: Well-developed, well-nourished, no acute distress. HEENT: Normocephalic, atraumatic. Neck: Normal range of motion. Nontender. Supple. Heart: Intact distal pulses. Lungs: No chest discomfort. No wheezes, rhonchi, or rales. Abdomen: Nontender. Back: Normal range of motion. Extremities: Normal range of motion. 3 cm laceration overlying the right patella. Skin: Intact. No rash. Warm. No erythema or pallor. Neurologic: No altered sensation. No weakness. Alert and oriented. Psychiatric: No suicidality. No anxiety or depression. No insomnia. Nursing notes and vitals signs are reviewed. Const: Vital Signs, click to edit/add: Vital Signs - 24 hr 12/25/24 18:17 Temperature 97.8 F Pulse Rate [Pulse Oximeter] 102 H Respiratory Rate 16 Blood Pressure [Ri ght Upper Arm] 145/81 H Pulse Oximetry 98 Oxygen Delivery Me thod Room Air Course Vital Signs Vital signs: Initial Vital Signs Temperature 97.8 F 12/25/24 18:17 Temperature Source Temporal Artery Scan 12/25/24 18:17 Pulse Rate 102 H 12/25/24 18:17 Respiratory Rate 16 12/25/24 18:17 Blood Pressure 145/81 H 12/25/24 18:17 Blood Pressure Mean 102 12/25/24 18:17 Blood Pressure Position Sitting 12/25/24 18:17 Pulse Oximetry 98 12/25/24 18:17 Oxygen Delivery Method Room Air 12/25/24 18:17 Vital Signs Temperature 97.8 F 12/25/24 18:17 Pulse Rate 102 H 12/25/24 18:17 Respiratory Rate 16 12/25/24 18:17 Blood Pressure 145/81 H 12/25/24 18:17 Pulse Oximetry 98 12/25/24 18:17 Oxygen Delivery Method Room Air 12/25/24 18:17 Temperature 97.8 F 12/25/24 18:17 Pulse Rate 102 H 12/25/24 18:17 Respiratory Rate 16 12/25/24 18:17 Blood Pressure 145/81 H 12/25/24 18:17 Pulse Oximetry 98 12/25/24 18:17 Oxygen Delivery Method Room Air 12/25/24 18:17 MDM - Wound/Laceration MDM Narrative Medical decision making narrative: This patient comes in with a laceration on his right knee as described above. After anesthesia with 1% lidocaine with epinephrine the wound was cleansed and explored to its base. I did place 6 sutures in interrupted fashion to approximate the wound edges. This was done using 4.0 Ethilon suture. Instructions regarding wound care were given and the need to have sutures removed in 7-10 days. He did receive an [employer] prescription for Toradol. Discharge Plan Discharge Clinical Impression: Laceration Patient Disposition: Home, Self-Care Condition: Improved Additional Instructions: Keep wound clean and dry. Follow-up for suture removal in 7-10 days. Prescriptions: No Action medical cannibus PO naproxen sodium [Aleve] 220 mg capsule 440 mg PO QDAY Follow Up/Referrals: Lupillo Abdi MD [Primary Care Provider, Family Practice] Stand Alone Forms: [email or web address] Info Instructions
== END 2024-12-25 21:18 | disposition home or self-care (01) ==
PROVIDERS: Emergency Provider Emergency Medicine Emergency Medical Services; PCP Family Medicine
DX: S81.011A Laceration without foreign body, right knee, initial encounter (principal); W45.8XXA Other foreign body or object entering through skin, initial encounter; W26.8XXA Contact with other sharp object(s), not elsewhere classified, initial encounter
CPT/HCPCS: 12002; 99283; 99284